=== PATIENT | female | born 1990 | race Two or more races ===

== ENCOUNTER 2018-01-05 17:59 | Emergency (ER) | payer SELFPAY ==
--- NOTE | 2018-01-05 18:13 | EDM.PDOC ---
ED HPI GENERAL MEDICAL PROBLEM - General Stated Complaint: TEST Time Seen by Provider: 01/05/18 18:03 - History of Present Illness INITIAL COMMENTS - FREE TEXT/NARRATIVE: HISTORY AND PHYSICAL: History of present illness: Patient 27-year-old female that for months. Was the 12th of this month who states she had a trace positive home test and request test she denies any other concern. Review of systems: As per history of present illness and below otherwise all systems reviewed and negative. Past medical history: As per history of present illness and as reviewed below otherwise noncontributory. Surgical history: As per history of present illness and as reviewed below otherwise noncontributory. Social history: No reported history of drug or alcohol abuse. Family history: As per history of present illness and as reviewed below otherwise noncontributory. Physical exam: HEENT: Atraumatic, normocephalic, pupils reactive, negative for conjunctival pallor or scleral icterus, mucous membranes moist, throat clear, neck supple, nontender, trachea midline. Lungs: Clear to auscultation, breath sounds equal bilaterally, chest nontender. Heart: S1S2, regular, negative for clicks, rubs, or JVD. Abdomen: Soft, nondistended, nontender. Negative for masses or hepatosplenomegaly. Negative for costovertebral tenderness. Pelvis: Stable nontender. Genitourinary: Deferred. Rectal: Deferred. Extremities: Atraumatic, negative for cords or calf pain. Neurovascular unremarkable. Neuro: Awake, alert, oriented. Cranial nerves II through XII unremarkable. Cerebellum unremarkable. Motor and sensory unremarkable throughout. Exam nonfocal. Diagnostics: ECG Therapeutics: None Impression: 1 medical screening exam/ test Definitive disposition and diagnosis as appropriate pending reevaluation and review of above. - Related Data Allergies Allergy/AdvReac Type Severity Reaction Status Date / Time No Known Allergies Allergy Verified 01/05/18 18:21 Home Meds: Home Meds Ethosuximide 250 mg PO DAILY 01/05/18 [History] Zonisamide [Zonegran] 100 mg PO BEDTIME 01/05/18 [History] lamoTRIgine [lamoTRIgine] 200 mg PO DAILY 01/05/18 [History] ED ROS GENERAL - Review of Systems Review Of Systems: ROS reveals no pertinent complaints other than HPI. ED EXAM, GENERAL - Physical Exam Exam: See Below (dictation) Course - Vital Signs Last Recorded V/S: Last Vital Signs Temp 36.4 C 01/05/18 18:11 Pulse 82 01/05/18 18:11 Resp 18 01/05/18 18:11 BP 129/82 01/05/18 18:11 Pulse Ox 96 01/05/18 18:11 - Orders/Labs/Meds Labs: Laboratory Tests 01/05/18 Range/Units 18:09 Urine HCG, Qual NEGATIVE (NEGATIVE) Departure - Departure Time of Disposition: 18:11 Disposition: Home, Self-Care 01 Condition: Good Clinical Impression: Encounter for medical screening examination - Discharge Information Referrals: PCP,None [Primary Care Provider] - Additional Instructions: The following information is given to patients seen in the emergency department who are being discharged to home. This information is to outline your options for follow-up care. We provide all patients seen in our emergency department with a follow-up referral. The need for follow-up, as well as the timing and circumstances, are variable depending upon the specifics of your emergency department visit. If you don't have a primary care physician on staff, we will provide you with a referral. We always advise you to contact your personal physician following an emergency department visit to inform them of the circumstance of the visit and for follow-up with them and/or the need for any referrals to a consulting specialist. The emergency department will also refer you to a specialist when appropriate. This referral assures that you have the opportunity for followup care with a specialist. All of these measure are taken in an effort to provide you with optimal care, which includes your followup. Under all circumstances we always encourage you to contact your private physician who remains a resource for coordinating your care. When calling for followup care, please make the office aware that this follow-up is from your recent emergency room visit. If for any reason you are refused follow-up, please contact the [facility] emergency department at and asked to speak to the emergency department charge nurse. Follow-up primary medical doctor return as needed as discussed
[2018-01-05 19:06] VITALS: BP 121/75
== END 2018-01-05 18:49 | disposition home or self-care (01) ==
LOC: MW.ED 17:59
DX: Z32.02 Encounter for pregnancy test, result negative (principal); Z79.899 Other long term (current) drug therapy
CPT/HCPCS: 81025; 99282

== ENCOUNTER 2018-04-01 21:56 | Emergency (ER) | payer SELFPAY ==
[2018-04-01] MEDS ORDERED: Ondansetron 4 MG/2 ML SDV IVPUSH ONE (22:00)
[2018-04-01] MEDS ORDERED: Ketorolac 30 MG/ML SDV IVPUSH ONE (22:00)
[2018-04-01] MEDS ORDERED: Sodium Chloride 0.9% 1,000 ML IV ONE (22:00)
--- NOTE | 2018-04-01 22:02 | EDM.PDOC ---
ED HPI GENERAL MEDICAL PROBLEM - General Stated Complaint: PAIN IN ABDOMEN Time Seen by Provider: 04/01/18 22:01 Source of Information: Reports: Patient - History of Present Illness INITIAL COMMENTS - FREE TEXT/NARRATIVE: HISTORY AND PHYSICAL: History of present illness: [Patient has had some left-sided abdominal pain increasing over last 24-48 hours worsen by carrying her child she points to the left lower quadrant no fever nausea vomiting chills sweats no distress rates pain 4 out of 10 nonradiating ] Review of systems: As per history of present illness and below otherwise all systems reviewed and negative. Past medical history: As per history of present illness and as reviewed below otherwise noncontributory. Surgical history: As per history of present illness and as reviewed below otherwise noncontributory. Social history: No reported history of drug or alcohol abuse. Family history: As per history of present illness and as reviewed below otherwise noncontributory. Physical exam: HEENT: Atraumatic, normocephalic, pupils reactive, negative for conjunctival pallor or scleral icterus, mucous membranes moist, throat clear, neck supple, nontender, trachea midline. Lungs: Clear to auscultation, breath sounds equal bilaterally, chest nontender. Heart: S1S2, regular, negative for clicks, rubs, or JVD. Abdomen: Soft, nondistended, mild tenderness on deep palpation in left lower quadrant no guarding or rebound tenderness. Negative for masses or hepatosplenomegaly. Negative for costovertebral tenderness. Pelvis: Stable nontender. Genitourinary: Deferred. Rectal: Deferred. Extremities: Atraumatic, negative for cords or calf pain. Neurovascular unremarkable. Neuro: Awake, alert, oriented. Cranial nerves II through XII unremarkable. Cerebellum unremarkable. Motor and sensory unremarkable throughout. Exam nonfocal. Diagnostics: [CBC CMP UA hCG lipase ] Therapeutics: [Liter normal saline bolus Zofran 8 mg IV Toradol 30 mg IV ] Toradol Keflex Impression: [ abdominal pain ] Epiploic appendage-itis Definitive disposition and diagnosis as appropriate pending reevaluation and review of above. Abdominal Pain Score (Numeric/FACES): 7 - Related Data Allergies Allergy/AdvReac Type Severity Reaction Status Date / Time kiwi Allergy Swelling Verified 04/01/18 23:03 Home Meds: Home Meds Ethosuximide 250 mg PO DAILY 01/05/18 [History] lamoTRIgine 200 mg PO DAILY 01/05/18 [History] Past Medical History Neurological History: Reports: Seizure - Past Surgical History GI Surgical History: Reports: Appendectomy Social & Family History - Family History Family Medical History: Noncontributory ED ROS GENERAL - Review of Systems Review Of Systems: See Below ED EXAM, GENERAL - Physical Exam Exam: See Below Course - Vital Signs Last Recorded V/S: Last Vital Signs Temp 98.7 F 04/01/18 22:10 Pulse 80 04/01/18 23:37 Resp 16 04/01/18 23:37 BP 120/55 L 04/01/18 23:37 Pulse Ox 100 04/01/18 23:37 - Orders/Labs/Meds Orders: Active Orders 24 hr Category Date Time Status Abdomen Pelvis wo Cont [CT] Stat Exams 04/01/18 22:46 Taken CULTURE URINE [RM] Stat Lab 04/01/18 22:50 Received HCG QUALITATIVE,URINE [URCHEM] Stat Lab 04/01/18 22:50 Ordered UA W/MICROSCOPIC [URIN] Stat Lab 04/01/18 22:50 Ordered Labs: Laboratory Tests 04/01/18 04/01/18 04/01/18 Range/Units 22:20 22:20 22:50 WBC 11.92 H (4.0-11.0) K/uL RBC 4.94 (4.30-5.90) M/uL Hgb 10.0 L (12.0-16.0) g/dL Hct 33.5 L (36.0-46.0) % MCV 67.8 L (80.0-98.0) fL MCH 20.2 L (27.0-32.0) pg MCHC 29.9 L (31.0-37.0) g/dL RDW Std Deviation 44.1 (28.0-62.0) fl RDW Coeff of Cristopher 18 H (11.0-15.0) % Plt Count 344 (150-400) K/uL MPV 9.30 (7.40-12.00) fL Neut % (Auto) 62.3 (48.0-80.0) % Lymph % (Auto) 31.0 (16.0-40.0) % [place] % (Auto) 5.3 (0.0-15.0) % Eos % (Auto) 1.0 (0.0-7.0) % Baso % (Auto) 0.4 (0.0-1.5) % Neut # (Auto) 7.4 H (1.4-5.7) K/uL Lymph # (Auto) 3.7 H (0.6-2.4) K/uL [place] # (Auto) 0.6 (0.0-0.8) K/uL Eos # (Auto) 0.1 (0.0-0.7) K/uL Baso # (Auto) 0.1 (0.0-0.1) K/uL Nucleated RBC % 0.0 /100WBC Nucleated RBCs # 0 K/uL Sodium 136 (136-145) mmol/L Potassium 3.8 (3.5-5.1) mmol/L Chloride 102 (98-107) mmol/L Carbon Dioxide 23.3 (21.0-32.0) mmol/L BUN 16 (7.0-18.0) mg/dL Creatinine 0.7 (0.6-1.0) mg/dL Est Cr Clr Drug Dosing 85.94 mL/min Estimated GFR (MDRD) > 60.0 ml/min Glucose 136 H (74-106) mg/dL Calcium 9.0 (8.5-10.1) mg/dL Total Bilirubin 0.2 (0.2-1.0) mg/dL AST 12 L (15-37) IU/L ALT 18 (14-63) IU/L Alkaline Phosphatase 134 H (46-116) U/L Total Protein 7.5 (6.4-8.2) g/dL Albumin 3.1 L (3.4-5.0) g/dL Globulin 4.4 H (2.0-3.5) g/dL Albumin/Globulin Ratio 0.7 L (1.3-2.8) Lipase 115 (73-393) U/L Urine Color YELLOW Urine Appearance HAZY Urine pH 6.0 (5.0-8.0) Ur Specific [place] >= 1.030 (1.001-1.035) Urine Protein NEGATIVE (NEGATIVE) mg/dL Urine Glucose (UA) NEGATIVE (NEGATIVE) mg/dL Urine Ketones NEGATIVE (NEGATIVE) mg/dL Urine Occult Blood MODERATE (NEGATIVE) Urine Nitrite NEGATIVE (NEGATIVE) Urine Bilirubin NEGATIVE (NEGATIVE) Urine Urobilinogen 0.2 (<2.0) EU/dL Ur Leukocyte Esterase TRACE (NEGATIVE) Urine RBC 2-4 (0-2/HPF) Urine WBC 4-6 (0-5/HPF) Ur Epithelial Cells FEW (NONE-FEW) Urine Bacteria FEW (NEGATIVE) Urine HCG, Qual (NEGATIVE) 04/01/18 Range/Units 22:50 WBC (4.0-11.0) K/uL RBC (4.30-5.90) M/uL Hgb (12.0-16.0) g/dL Hct (36.0-46.0) % MCV (80.0-98.0) fL MCH (27.0-32.0) pg MCHC (31.0-37.0) g/dL RDW Std Deviation (28.0-62.0) fl RDW Coeff of Cristopher (11.0-15.0) % Plt Count (150-400) K/uL MPV (7.40-12.00) fL Neut % (Auto) (48.0-80.0) % Lymph % (Auto) (16.0-40.0) % [place] % (Auto) (0.0-15.0) % Eos % (Auto) (0.0-7.0) % Baso % (Auto) (0.0-1.5) % Neut # (Auto) (1.4-5.7) K/uL Lymph # (Auto) (0.6-2.4) K/uL [place] # (Auto) (0.0-0.8) K/uL Eos # (Auto) (0.0-0.7) K/uL Baso # (Auto) (0.0-0.1) K/uL Nucleated RBC % /100WBC Nucleated RBCs # K/uL Sodium (136-145) mmol/L Potassium (3.5-5.1) mmol/L Chloride (98-107) mmol/L Carbon Dioxide (21.0-32.0) mmol/L BUN (7.0-18.0) mg/dL Creatinine (0.6-1.0) mg/dL Est Cr Clr Drug Dosing mL/min Estimated GFR (MDRD) ml/min Glucose (74-106) mg/dL Calcium (8.5-10.1) mg/dL Total Bilirubin (0.2-1.0) mg/dL AST (15-37) IU/L ALT (14-63) IU/L Alkaline Phosphatase (46-116) U/L Total Protein (6.4-8.2) g/dL Albumin (3.4-5.0) g/dL Globulin (2.0-3.5) g/dL Albumin/Globulin Ratio (1.3-2.8) Lipase (73-393) U/L Urine Color Urine Appearance Urine pH (5.0-8.0) Ur Specific [place] (1.001-1.035) Urine Protein (NEGATIVE) mg/dL Urine Glucose (UA) (NEGATIVE) mg/dL Urine Ketones (NEGATIVE) mg/dL Urine Occult Blood (NEGATIVE) Urine Nitrite (NEGATIVE) Urine Bilirubin (NEGATIVE) Urine Urobilinogen (<2.0) EU/dL Ur Leukocyte Esterase (NEGATIVE) Urine RBC (0-2/HPF) Urine WBC (0-5/HPF) Ur Epithelial Cells (NONE-FEW) Urine Bacteria (NEGATIVE) Urine HCG, Qual NEGATIVE (NEGATIVE) Meds: Medications Discontinued Medications Generic Name Dose Route Start Last Admin Trade Name Freq PRN Reason Stop Dose Admin Sodium Chloride 1,000 mls @ 999 mls/hr 04/01/18 22:00 04/01/18 22:39 Normal Saline IV 04/01/18 23:00 999 mls/hr STAT ONE Administration Ketorolac Tromethamine 30 mg 04/01/18 22:00 04/01/18 22:39 Toradol IVPUSH 04/01/18 22:01 30 mg ONETIME ONE Administration Ondansetron HCl 8 mg 04/01/18 22:00 04/01/18 22:41 Zofran IVPUSH 04/01/18 22:01 8 mg ONETIME ONE Administration Departure - Departure Time of Disposition: 00:26 Disposition: Home, Self-Care 01 Condition: Good Clinical Impression: Abdominal pain - Discharge Information Referrals: PCP,None [Primary Care Provider] - Additional Instructions: The following information is given to patients seen in the emergency department who are being discharged to home. This information is to outline your options for follow-up care. We provide all patients seen in our emergency department with a follow-up referral. The need for follow-up, as well as the timing and circumstances, are variable depending upon the specifics of your emergency department visit. If you don't have a primary care physician on staff, we will provide you with a referral. We always advise you to contact your personal physician following an emergency department visit to inform them of the circumstance of the visit and for follow-up with them and/or the need for any referrals to a consulting specialist. The emergency department will also refer you to a specialist when appropriate. This referral assures that you have the opportunity for follow-up care with a specialist. All of these measure are taken in an effort to provide you with optimal care, which includes your follow-up. Under all circumstances we always encourage you to contact your private physician who remains a resource for coordinating your care. When calling for follow-up care, please make the office aware that this follow-up is from your recent emergency room visit. If for any reason you are refused follow-up, please contact the [facility] emergency department at and asked to speak to the emergency department charge nurse. - My Orders Last 24 Hours: My Active Orders 04/01/18 22:46 Abdomen Pelvis wo Cont [CT] Stat 04/01/18 22:50 CULTURE URINE [RM] Stat HCG QUALITATIVE,URINE [URCHEM] Stat UA W/MICROSCOPIC [URIN] Stat - Assessment/Plan Last 24 Hours: My Active Orders 04/01/18 22:46 Abdomen Pelvis wo Cont [CT] Stat 04/01/18 22:50 CULTURE URINE [RM] Stat HCG QUALITATIVE,URINE [URCHEM] Stat UA W/MICROSCOPIC [URIN] Stat
[2018-04-01 22:54] LABS: CHLORIDE,CL 102 mmol/L (98-107); SODIUM,NA 136 mmol/L (136-145)
[2018-04-02 00:43] VITALS: BP 157/82
--- NOTE | 2018-04-04 13:22 | CT ---
EXAM DATE: 04/01/18 PATIENT'S AGE: 27 Patient: ZURI CHANEL Facility: [place], [place] Site . Site : 1990 Study: CT Abdomen/Pelvis wo nadine [id number]/[id number] 11:26:41 PM Ordering Physician: Elena Gonzales Final Report: HISTORY: Lower abdominal pain starting yesterday. TECHNIQUE: The abdomen and pelvis were scanned using helical technique at 3 mm intervals without IV contrast. Sagittal and coronal reconstructions were performed. FINDINGS: Lung bases: No infiltrate. Liver and gallbladder: The liver parenchyma is homogeneous. No calcified gallstones. Spleen, pancreas and adrenal glands: Unremarkable. Kidneys and bladder: No calcified urolithiasis or hydronephrosis. Ureters are tiny in caliber. No ureteral stones of the bladder is decompressed. Retroperitoneum and lymph node: The aorta is normal caliber. No pathologic roney aortic lymphadenopathy is seen. There is a single borderline enlarged gastrohepatic lymph node measuring 14 x 10 mm on axial image 30. Small mesenteric lymph nodes are present. GI tract: Stomach is mildly distended. No dilated small bowel loops are seen. There surgical clips seen along the tip of the cecum most likely prior appendectomy. Stool and gas are seen throughout the colon. Within the left lower quadrant, there is a ring-like density measuring 3.6 x 1.8 x 2.9 cm in the peritoneal fat superior to the proximal sigmoid colon and lateral to small bowel. There is hazy increased density in the peritoneal fat. There is no adjacent small bowel or colonic wall thickening. This may represent epiploic appendagitis versus focal panniculitis /fat necrosis. There is no free air in the abdomen. There is no free fluid the pelvis. Pelvic organs: The uterus and adnexa are within normal limits. Abdominal wall: No ventral hernia. Osseous structures: Normal for age. IMPRESSION: 1. No calcified urolithiasis, hydronephrosis or ureteral obstruction. 2. 3.6 x 1.8 x 2.9 cm ring-like density is seen in the left lower quadrant peritoneal fat was standing hazy increased density. This is superior to the proximal sigmoid colon and lateral to the small bowel loops. This most likely represents focal panniculitis/fat necrosis versus epiploic appendagitis. No adjacent small bowel or colonic wall thickening. Dictated by Debra Dean MD @ 04/02/2018 12:11:25 AM Please note that all CT scans at this facility use dose modulation, iterative reconstruction, and/or weight-based dosing when appropriate to reduce radiation dose to as low as reasonably achievable. Dictated by: Debra Dean MD @ 04/02/2018 00:11:51 (Electronic Signature) Report Signed by Proxy. MTDD
== END 2018-04-02 00:38 | disposition home or self-care (01) ==
LOC: MW.ED 21:56
DX: K63.89 Other specified diseases of intestine (principal); Z91.018 Allergy to other foods; Z79.899 Other long term (current) drug therapy
CPT/HCPCS: 74176; 80053; 81001; 81025; 83690; 85025; 87086; 96361; 96374; 96375; 99284; J1885; J2405; J7040

== ENCOUNTER 2018-05-29 13:17 | Observation (INO) | payer OTHER ==
--- NOTE | 2018-05-29 13:50 | EDM.PDOC ---
ED HPI GENERAL MEDICAL PROBLEM - General Chief Complaint: Lower Extremity Injury/Pain Stated Complaint: INJURED RT ANKLE Time Seen by Provider: 05/29/18 13:25 Source of Information: Reports: Patient History Limitations: Reports: No Limitations - History of Present Illness INITIAL COMMENTS - FREE TEXT/NARRATIVE: HISTORY AND PHYSICAL: History of present illness: Patient is a 27-year-old female who presents to the emergency room today with complaints of right ankle pain. She states she was walking down a steep hill when she fell and rolled her ankle. She states she heard a "pop". Denies any numbness or tingling to the distal extremity. Increased pain with weightbearing and range of motion. Denies any previous injury, trauma or surgeries to the affected extremity. She did not hit her head or any loss of consciousness. Review of systems: As per history of present illness and below otherwise all systems reviewed and negative. Past medical history: As per history of present illness and as reviewed below otherwise noncontributory. Surgical history: As per history of present illness and as reviewed below otherwise noncontributory. Social history: No reported history of drug or alcohol abuse. Family history: As per history of present illness and as reviewed below otherwise noncontributory. Physical exam: General: Well-developed and well-nourished 27-year-old female. Alert and oriented. Nontoxic appearing and in no acute distress. HEENT: Atraumatic, normocephalic, pupils equal and reactive bilaterally, negative for conjunctival pallor or scleral icterus, mucous membranes moist, throat clear, neck supple, nontender, trachea midline. No drooling or trismus noted. No meningeal signs Lungs: Clear to auscultation, breath sounds equal bilaterally, chest nontender. Heart: S1S2, regular rate and rhythm without overt murmur Abdomen: Soft, nondistended, nontender. Negative for masses or hepatosplenomegaly. Negative for costovertebral tenderness. Pelvis: Stable nontender. Genitourinary: Deferred. Rectal: Deferred. Skin: Intact, warm, dry. No lesions or rashes noted. Extremities: Pain with palpation of the distal tib/fib, anterior surface of the right ankle, and medial malleoulus. Strong pedal pulse. Capillary refill less than 3 seconds. Patient has pain with flexion and extension of the ankle. She is negative for cords or calf pain. Neurovascular unremarkable. Neuro: Awake, alert, oriented. Cranial nerves II through XII unremarkable. Cerebellum unremarkable. Motor and sensory unremarkable throughout. Exam nonfocal. Notes: Xray shows a trimalleolar fracture. Dr Washington, Orthopedics, was consulted on this case. He will come in to see the patient. Information was shared with the patient. She was instructed on NPO status. We' ll give her IV pain medication at this time. Diagnostics: X-ray Therapeutics: Ice, morphine, zofran, posterior splint Impression: Trimalleolar fracture, right Plan: Patient is going to be admitted under Dr Washington's supervision Definitive disposition and diagnosis as appropriate pending reevaluation and review of above. Onset: Today Right Lower Leg Pain Score (Numeric/FACES): 10 - Related Data Allergies Allergy/AdvReac Type Severity Reaction Status Date / Time kiwi Allergy Swelling Verified 05/29/18 13:33 Home Meds: Home Meds Ethosuximide 250 mg PO DAILY 01/05/18 [History] lamoTRIgine 200 mg PO DAILY 01/05/18 [History] Past Medical History Neurological History: Reports: Seizure - Infectious Disease History Infectious Disease History: Reports: Chicken Pox - Past Surgical History GI Surgical History: Reports: Appendectomy Social & Family History - Family History Family Medical History: Noncontributory - Tobacco Use Smoking Status *Q: Never Smoker - Caffeine Use Caffeine Use: Reports: Soda - Recreational Drug Use Recreational Drug Use: No Review of Systems - Review of Systems Review Of Systems: ROS reveals no pertinent complaints other than HPI. ED EXAM, GENERAL - Physical Exam Exam: See Below (See dictation) Course - Vital Signs Last Recorded V/S: Last Vital Signs Temp 98.0 F 05/29/18 13:35 Pulse 88 05/29/18 13:35 Resp 18 05/29/18 13:35 BP 137/83 05/29/18 13:35 Pulse Ox 95 05/29/18 13:35 - Orders/Labs/Meds Orders: Active Orders 24 hr Category Date Time Status Ankle Min 3V Rt [CR] Stat Exams 05/29/18 13:23 Taken DME for Discharge [COMM] Stat Oth 05/29/18 13:53 Ordered Meds: Medications Discontinued Medications Generic Name Dose Route Start Last Admin Trade Name Freq PRN Reason Stop Dose Admin Morphine Sulfate 2 mg 05/29/18 14:30 05/29/18 14:49 Morphine IVPUSH 05/29/18 14:31 2 mg ONETIME ONE Administration Ondansetron HCl 4 mg 05/29/18 14:30 05/29/18 14:49 Zofran IVPUSH 05/29/18 14:31 4 mg ONETIME ONE Administration Departure - Departure Time of Disposition: 15:12 Disposition: Refer to Observation Clinical Impression: Trimalleolar fracture of ankle, closed Qualifiers: Encounter type: initial encounter Laterality: right Qualified Code(s): S82.851A - Displaced trimalleolar fracture of right lower leg, initial encounter for closed fracture - Discharge Information Referrals: PCP,None [Primary Care Provider] - Forms: ED Department Discharge - My Orders Last 24 Hours: My Active Orders 05/29/18 13:23 Ankle Min 3V Rt [CR] Stat 05/29/18 13:53 DME for Discharge [COMM] Stat - Assessment/Plan Last 24 Hours: My Active Orders 05/29/18 13:23 Ankle Min 3V Rt [CR] Stat 05/29/18 13:53 DME for Discharge [COMM] Stat
[2018-05-29] MEDS ORDERED: Ondansetron 4 MG/2 ML SDV IVPUSH ONE (14:30)
[2018-05-29] MEDS ORDERED: Morphine 2 MG/ML Syringe IVPUSH ONE (14:30)
[2018-05-29] MEDS ORDERED: ceFAZolin 2 GM in Premix Bag 1 BAG IV ONE (15:57)
--- NOTE | 2018-05-29 16:22 | HP ---
DATE OF : 1990 PRIMARY CARE PHYSICIAN: None PCP HISTORY OF PRESENT ILLNESS: The patient is a 27-year-old female, who sustained a mechanical/twisting injury to her right ankle earlier today at approximately noon. She was walking down a hill. She notes an injury to the ankle. She denies pain involving other regions. She did not hit her head or lose consciousness. Her last meal was at 8:00 a.m. PAST MEDICAL HISTORY: Epilepsy, anemia, obesity. PAST SURGICAL HISTORY: Appendectomy. MEDICATIONS: Include Lamictal and another antiepileptic medication. SOCIAL HISTORY: She does not smoke, does not drink alcohol. She denies additional drug use. She is accompanied to the Emergency Department by her with whom she also lives at home. REVIEW OF SYSTEMS: She denies personal or family history of DVT/PE or bleeding/clotting problems associated with surgery. She has had no complications of her previous surgeries or other skin infections. She has been taking a normal diet and has otherwise been in her normal state of health. PHYSICAL EXAMINATION: GENERAL: Reveals a well-appearing female. She is mildly uncomfortable with respect to the ankle, but is otherwise in no apparent distress. She responds appropriately to questions and is alert and oriented x3. EXTREMITIES: Examination of her bilateral upper extremities shows no pain with active range of motion of the shoulders, elbows, and wrists. No pain with passive range of motion of any joints of the left lower extremity or no evidence of any trauma involving the right knee or right hip region. There is swelling involving the right ankle. She notes some nonspecific numbness involving her toes. She is, however, able to identify sensation to light touch in the deep peroneal, superficial peroneal, and tibial nerve distribution. She has a palpable dorsalis pedis pulse and brisk capillary refill to the toes. She is able to weakly flex and extend the toes, which is somewhat limited by pain referred to the ankle region. There are no lacerations, blisters, or other abnormalities involving the ankle. She does have a somewhat significant swelling which is difficult to ascertain entirely given the fact that she has significant obesity at baseline. LABORATORY RESULTS: Previously obtained labs were reviewed. New labs pending. Prior labs notable for some anemia with a hemoglobin of 10 and hematocrit of 33, white count is 12, platelet count 344. A basic metabolic panel was reviewed as well as was a urine hCG which was negative. X-rays were reviewed as well. This is consistent with a bimalleolar and possible trimalleolar ankle fracture. The lateral is difficult to interpret. There is a high fibular fracture with associated medial malleolar fracture. There is lateral subluxation of the tibia. There does not appear to be a posterior or anterior subluxation on the lateral view. ASSESSMENT: Unstable right ankle fracture. PLAN: I did recommend operative intervention for this given the nature of the fracture as well as the patient's young age and high activity level. She is in agreement with operative intervention and consent for the procedure was obtained. Please see below. She was placed in a splint in neutral dorsiflexion with some varus stress as well to reduce the lateral subluxation. My intention will be likely to admit the patient for a strict elevation to avoid swelling and likely completion of the surgery tomorrow. She could potentially be discharged home following the procedure. Informed consent: Following a thorough discussion of the risks, benefits, expected outcomes, and alternatives, patient does wish to proceed with operative intervention as noted above. The potential complications were discussed to include, but not limited to infection, neurovascular injury, DVT/PE, damage to adjacent structures, specifically we discussed the likely outcome of a temporary or permanent numbness/paresthesias involving the dorsal aspect of the foot given the proximity of the superficial peroneal nerve to the high fibular fracture, failure of the fracture to heal, hardware related failure/pain, need for later hardware removal, persistent pain in spite of surgery, development of arthritis over time, need for additional surgery, and rarely loss of limb or life. ALEKSANDR / JOVANI /[id number] AWA
[2018-05-29 16:48] LABS: CHLORIDE,CL 103 mmol/L (98-107); SODIUM,NA 136 mmol/L (136-145)
[2018-05-29] MEDS: Morphine 2 MG/ML Syringe IVPUSH PRN ×3 (17:08→21:26)
[2018-05-29] MEDS: ETHOSUXIMIDE 250 MG PO SCH (21:09)
[2018-05-29] MEDS: lamoTRIgine 100 MG Tab PO SCH (21:11)
[2018-05-30] MEDS ORDERED: Lactated Ringers 1,000 ML IV SCH
[2018-05-30] MEDS: Morphine 2 MG/ML Syringe IVPUSH PRN ×3 (01:08→09:04)
[2018-05-30] MEDS: lamoTRIgine 100 MG Tab PO SCH ×2 (08:59→22:07)
[2018-05-30] MEDS ORDERED: ETHOSUXIMIDE 250 MG PO SCH (09:00)
[2018-05-30] MEDS ORDERED: lamoTRIgine 100 MG Tab PO SCH (09:00)
[2018-05-30] MEDS: ETHOSUXIMIDE 250 MG PO SCH ×2 (09:04→22:08)
--- NOTE | 2018-05-30 09:23 | PCM.PREANE ---
Preanesthetic Assessment - Procedure Proposed Procedure: ORIF Right ankle - Anesthesia/Transfusion/Family Hx Anesthesia History: Prior Anesthesia Without Reaction Family History of Anesthesia Reaction: No Transfusion History: No Prior Transfusion(s) - Review of Systems Other: Reports: None - Physical Assessment NPO Status Date: 05/29/18 NPO Status Time: 22:00 O2 Sat by Pulse Oximetry: 98 Respiratory Rate: 19 Vital Signs: Last Vital Signs Temp 37.2 C 05/30/18 05:48 Pulse 80 05/30/18 05:48 Resp 19 05/30/18 05:48 BP 129/79 05/30/18 05:48 Pulse Ox 98 05/30/18 05:48 Height: 5 ft Weight: 86.1 kg ASA Class: 2 Mental Status: Alert & Oriented x3 Airway Class: Mallampati = 2 Dentition: Reports: Normal Dentition Thyro-Mental Finger Breadths: 3 Mouth Opening Finger Breadths: 2 ROM/Head Extension: Full - Lab Values: Laboratory Last Values WBC 15.35 K/uL (4.0-11.0) H 05/29/18 14:45 RBC 4.85 M/uL (4.30-5.90) 05/29/18 14:45 Hgb 10.1 g/dL (12.0-16.0) L 05/29/18 14:45 Hct 33.4 % (36.0-46.0) L 05/29/18 14:45 MCV 68.9 fL (80.0-98.0) L 05/29/18 14:45 MCH 20.8 pg (27.0-32.0) L 05/29/18 14:45 MCHC 30.2 g/dL (31.0-37.0) L 05/29/18 14:45 RDW Std Deviation 48.2 fl (28.0-62.0) 05/29/18 14:45 RDW Coeff of Cristopher 19 % (11.0-15.0) H 05/29/18 14:45 Plt Count 354 K/uL (150-400) 05/29/18 14:45 MPV 9.20 fL (7.40-12.00) 05/29/18 14:45 Nucleated RBC % 0.0 /100WBC 05/29/18 14:45 Nucleated RBCs # 0 K/uL 05/29/18 14:45 Sodium 136 mmol/L (136-145) 05/29/18 14:45 Potassium 4.0 mmol/L (3.5-5.1) 05/29/18 14:45 Chloride 103 mmol/L (98-107) 05/29/18 14:45 Carbon Dioxide 24.3 mmol/L (21.0-32.0) 05/29/18 14:45 BUN 11 mg/dL (7.0-18.0) 05/29/18 14:45 Creatinine 0.9 mg/dL (0.6-1.0) 05/29/18 14:45 Est Cr Clr Drug Dosing 66.84 mL/min 05/29/18 14:45 Estimated GFR (MDRD) > 60.0 ml/min 05/29/18 14:45 Glucose 137 mg/dL (74-106) H 05/29/18 14:45 Calcium 9.6 mg/dL (8.5-10.1) 05/29/18 14:45 Urine HCG, Qual NEGATIVE (NEGATIVE) 05/29/18 18:20 - Allergies Allergies/Adverse Reactions: Allergies Allergy/AdvReac Type Severity Reaction Status Date / Time kiwi Allergy Swelling Verified 05/29/18 13:33 - Blood Blood Available: No - Acknowledgements Anesthesia Type Planned: General Anesthesia Pt an Appropriate Candidate for the Planned Anesthesia: Yes Alternatives and Risks of Anesthesia Discussed w Pt/Guardian: Yes Pt/Guardian Understands and Agrees with Anesthesia Plan: Yes PreAnesthesia Questionnaire Neurological History: Reports: Seizure Other Neuro History: took her meds today - Infectious Disease History Infectious Disease History: Reports: Chicken Pox - Past Surgical History GI Surgical History: Reports: Appendectomy - SUBSTANCE USE Smoking Status *Q: Never Smoker Second Hand Smoke Exposure: No Recreational Drug Use History: No - HOME MEDS Home Medications: Home Meds Ethosuximide 500 mg PO BID 01/05/18 [History] lamoTRIgine 200 mg PO BID 01/05/18 [History] - CURRENT (IN HOUSE) MEDS Current Meds: Current Medications Lactated Ringer's (Ringers, Lactated) 1,000 mls @ 70 mls/hr IV ASDIRECTED [facility] Last Admin: 05/29/18 23:58 Dose: 70 mls/hr Lamotrigine (Lamotrigine) 200 mg PO BID [facility] Last Admin: 05/30/18 08:59 Dose: 200 mg Morphine Sulfate (Morphine) 2 mg IVPUSH Q1H PRN PRN Reason: Pain Last Admin: 05/30/18 09:04 Dose: 2 mg Ethosuximide 250mg Capsule Own Med * * 2 each PO BID [facility] Last Admin: 05/30/18 09:04 Dose: 2 each Discontinued Medications Cefazolin Sodium/Dextrose 2 gm (/ Premix) 50 mls @ 100 mls/hr IV ONCALL ONE Stop: 05/29/18 16:26 Morphine Sulfate (Morphine) 2 mg IVPUSH ONETIME ONE Stop: 05/29/18 14:31 Last Admin: 05/29/18 14:49 Dose: 2 mg Ondansetron HCl (Zofran) 4 mg IVPUSH ONETIME ONE Stop: 05/29/18 14:31 Last Admin: 05/29/18 14:49 Dose: 4 mg
--- NOTE | 2018-05-30 09:38 | CR ---
EXAM DATE: 05/29/18 PATIENT'S AGE: 27 Patient: ZURI CHANEL Facility: [place], [place] Site . Site : 1990 Study: XRay Extremity Right ankle [id number]/12/2018 2:03:49 PM Ordering Physician: Doctor Simmons Final Report: INDICATION: slipped down hill 3 hours ago/cant put weight on right ankle TECHNIQUE: Three views of the right ankle are submitted. COMPARISON: None. FINDINGS: 1. Fracture of the distal right fibular shaft 6 cm superior to the tibiotalar joint with half shaft width of lateral displacement of the distal shaft fragment. Transverse fracture through the medial malleolus at the level of the talar dome with the distal fragment and the talus subluxed laterally by approximately 3 mm. The medial malleolar fragment is also displaced by up to 7 mm inferiorly. 2. Subtle deformity of the distal tibia posterolaterally where a nondisplaced intra-articular fracture is suspected. 3. Soft tissue swelling about the right ankle. IMPRESSION: Trimalleolar fracture of the right ankle as described above. Dictated by Rusty Adams MD @ 05/29/2018 2:26:19 PM Dictated by: Rusty Adams MD @ 05/29/2018 14:26:24 (Electronic Signature) Report Signed by Proxy. AWA
[2018-05-30] MEDS ORDERED: fentaNYL 100 MCG/2 ML SDV IVPUSH PRN (13:46)
--- NOTE | 2018-05-30 13:46 | CT ---
EXAM DATE: 05/29/18 PATIENT'S AGE: 27 Patient: ZURI CHANEL Facility: [place], [place] : 1990 Study: CT Extremity Right [id number]/12/2018 7:17:45 PM Ordering Physician: Padmini Drake Final Report: ADDENDUM CORRECTION: Technique should read: CT right tibia and fibula without contrast. Christian Montalvo M.D. Diagnostic/Musculoskeletal Radiologist [employer]. [email or web address]: D& HISTORY: Fall while hiking. Fracture. TECHNIQUE: CT left tibia and fibula without contrast. COMPARISON: Radiographs same day. FINDINGS: Acute oblique fracture of the distal fibular shaft. 5 mm posterior displacement of the distal fragment. Acute slightly oblique transverse fracture of the medial malleolus. Medial malleolus fragment is slightly rotated inferiorly resulting in 5 mm displacement along the anterior fracture margin. Fracture involves the medial malleolus articular surface. Acute coronal intra-articular fracture of the posterior malleolus. Fracture involves the posterior tibial plafond articular surface. Posterior malleolus fragment is minimally superiorly displaced resulting in less than 2 mm articular surface step-off. Few small cortical fragments along the lateral margin of the posterior malleolus fracture. No proximal fibula or tibia fracture. No dislocation. Joint spaces of the hindfoot, midfoot, and midfoot-forefoot junction are maintained. Knee joint spaces are maintained. Physiologic quantity of fluid in the right knee joint. No lytic or blastic bone lesions. Ill-defined high-density stranding of subcutaneous fat in the lower leg and ankle consistent with acute hemorrhage. Muscle bulk is maintained. IMPRESSION: 1. Acute intra-articular fractures of the medial and posterior malleoli. 2. Acute fracture of the distal fibular shaft. 3. Ill-defined subcutaneous hemorrhage. Please note that all CT scans at this facility use dose modulation, iterative reconstruction, and/or weight-based dosing when appropriate to reduce radiation dose to as low as reasonably achievable. Dictated by Christian Montalvo MD @ May 30 2018 8:51AM Signed by: Christian Montalvo @ 05/30/2018 9:00:51 AM (Electronic Signature) ----ADDENDUM---- (Electronic Signature) Report Signed by Proxy. [facility]
--- NOTE | 2018-05-30 14:35 | PCM.SN ---
- Free Text/Narrative Note: Preop dx: Right ankle fracture Postop dx: Same Surgery: ORIF right ankle fracture Comp: none EBL: 20 TT: 70 minutes at 300 mmHg
--- NOTE | 2018-05-30 14:46 | PCM.POSTAN ---
POST ANESTHESIA ASSESSMENT - MENTAL STATUS Mental Status: Alert, Oriented - RESPIRATORY Respiratory Status: Respiratory Rate WNL, Airway Patent, O2 Saturation Stable, Supplemental Oxygen (O2 via nasal canula) - CARDIOVASCULAR CV Status: Pulse Rate WNL, Blood Pressure Stable - GASTROINTESTINAL GI Status: No Symptoms - PAIN Pain Score: 9 Free Text/Narrative:: patient states pain a 9 but having hard time keeping eyes open and head bobbling. IV tylenol ordered - POST OP HYDRATION Hydration Status: Adequate & Stable
[2018-05-30] MEDS ORDERED: Acetaminophen 1,000 MG in Premix Bag 1 BAG IV ONE (14:47)
--- NOTE | 2018-05-30 15:19 | CR ---
EXAMINATION: Right ankle HISTORY: ORIF COMPARISON: CT dated 05/29/2018 TECHNIQUE: 8 fluoroscopic images provided FINDINGS/IMPRESSION: Operative control films demonstrate screw and plate fixation of the distal fibul a with a syndesmotic anchor noted. 2 screws fixate the medial malleolus.
--- NOTE | 2018-05-30 19:35 | PCM48HPAN ---
Post Anesthesia Note - EVALUATION WITHIN 48HRS OF ANESTHETIC Vital Signs in Normal Range: Yes Patient Participated in Evaluation: Yes Respiratory Function Stable: Yes Airway Patent: Yes Cardiovascular Function Stable: Yes Hydration Status Stable: Yes Pain Control Satisfactory: Yes Nausea and Vomiting Control Satisfactory: Yes Mental Status Recovered: Yes Resp Rate: 11
[2018-05-30] MEDS: Ondansetron 4 MG/2 ML SDV IVPUSH PRN (20:15)
--- NOTE | 2018-05-30 21:17 | OR ---
SURGEON: ERIKA DOWNS MD DATE OF PROCEDURE: 05/30/2018 ANESTHESIA: General anesthesia with local infiltration of Marcaine at the completion of the case. PREOPERATIVE DIAGNOSIS: Unstable right ankle fracture, trimalleolar. POSTOPERATIVE DIAGNOSIS: Unstable right ankle fracture, trimalleolar. OPERATION PERFORMED: Open reduction and internal fixation, right ankle fracture. COMPLICATIONS: None. ESTIMATED BLOOD LOSS: 20. TOURNIQUET TIME: 70 minutes at 300 mmHg. INDICATIONS: The patient is a 27-year-old female, who sustained a fall yesterday resulting in a trimalleolar fracture of her ankle. I saw her in the Emergency Department yesterday, a reduction and splint was applied. She was admitted for monitoring and elevation with planned surgery today. Consent for this procedure was obtained following a thorough discussion of the risks, benefits, expected outcomes, and alternatives. DESCRIPTION OF PROCEDURE: I saw the patient in the preoperative holding area. The operative site was marked. She was brought back to the operating room. General anesthesia was administered. She received 2 g of Ancef preoperatively. She also received 1 additional gram following deflation of the tourniquet during the case. She was positioned supine with a bump. Care was taken to pad all bony prominences. She was then prepped and draped in the normal sterile fashion. Following a multidisciplinary time-out, the Esmarch bandage applied and the tourniquet was inflated to 300 mmHg. I initially made a lateral approach to the distal fibula fracture. This was a more proximal fracture, so I did take care to identify and protect the superficial peroneal nerve. The fracture site was identified. Hematoma was removed. It did take a fair amount of traction to bring this out to length, but ultimately I was able to bring out to length. I did attempt a lag screw. However, I was not successful in this given a relatively short oblique nature of the fracture. Ultimately, I was able to provisionally hold the reduction with a K-wire and place a tubular locking plate from Francis laterally. This was secured proximally with one nonlocking and two locking screws and distally with one locking and two nonlocking screws. Attention was turned towards the medial side. The saphenous vein/nerve were identified and protected throughout the case. The fracture site was identified. Interposed periosteum was elevated and cleaned in order to visualize anatomic reduction. This was held with a clamp. A two 4-0 cannulated screws were used to secure the fixation. Multiple fluoroscopic views were obtained at this time to ensure appropriate position of the hardware in both the AP and lateral view. Although, I had fixation laterally and medially, I still felt that there seemed to be some subjective widening of the syndesmosis, although, no gross dynamic instability. I did feel that, as a backup, a single syndesmotic soft/suture fixation was appropriate. An Arthrex tightrope device was placed and secured in place in a standard fashion and this was done with the ankle in dorsiflexion and the syndesmosis clamped appropriately. Final fluoroscopic views were obtained at this time and showed appropriate reductions, appropriate position of the hardware, no other additional complications. Wounds were thoroughly irrigated. The tourniquet was deflated. Hemostasis was obtained. Closure occurred on the lateral side with some 0 Vicryl for the deep subcutaneous tissue as well as general apposition of the deep layer over the plate. The skin was closed with 2- 0 Vicryl, 3-0 Vicryl, and desiree. The medial side was closed with 2-0, Vicryl 3-0 Vicryl and desiree after an additional thorough irrigation. The patient was then placed in an posterior U-splint with neutral dorsiflexion. She was then awoken from general anesthesia and transferred to recovery in stable condition. Postoperative plan will include routine cares following fixation of this trimalleolar fracture. She will remain in her postoperative splint for the first 10 to 14 days. She will follow up in clinic with x-rays out of splint at the initial postoperative visit. She will then be transitioned into a short-leg cast with an anticipated additional four weeks where she should maintain non/toe- touch weightbearing. Given her obesity, I will plan on keeping her overnight to ensure that she can work with physical therapy and is safe with crutches. We may be looking at getting her a scooter device as well. ALEKSANDR / JOVANI /[id number]
[2018-05-30] MEDS: ceFAZolin 2 GM in Premix Bag 1 BAG IV SCH (22:08)
[2018-05-31] MEDS: Acetaminophen/HYDROcodone 325-7.5 MG Tab PO PRN ×3 (01:40→13:58)
[2018-05-31] MEDS: ceFAZolin 2 GM in Premix Bag 1 BAG IV SCH ×2 (06:23→13:22)
[2018-05-31] MEDS: lamoTRIgine 100 MG Tab PO SCH (08:00)
[2018-05-31] MEDS: ETHOSUXIMIDE 250 MG PO SCH (08:14)
[2018-05-31] MEDS ORDERED: Aspirin 325 MG Tab PO SCH (09:00)
[2018-05-31] MEDS: Ondansetron 4 MG/2 ML SDV IVPUSH PRN (10:03)
--- NOTE | 2018-05-31 11:06 | PN ---
SUBJECTIVE: The patient reports that she is overall doing well overnight. She has been elevating the ankle. She has been getting around with a walker. She had a bit of nausea yesterday, although this has not recurred in spite of taking pain medications since then. Her pain is under reasonable control. She denies chest pain, shortness of breath, or other complaints. OBJECTIVE: VITAL SIGNS: The patient is afebrile. Pulse 82, blood pressure 127/73, saturating 96% on room air. EXTREMITIES: Evaluation of the splint shows it to be clean, dry, and intact. She continues to note some nonspecific numbness involving her toes which is similar to preoperative. She is able to identify light touch to all toes. She has brisk capillary refill to the toes. She can flex and extend the toes within the confines of the splint. ASSESSMENT: Postoperative day #1; status post open reduction, internal fixation of trimalleolar ankle fracture. PLAN: She will have physical therapy this morning. Additionally, a request for a knee scooter was provided. This should be given this morning prior to discharge. Once these are accomplished, the patient can discharge to home. Instructions have been provided. She needs to keep the splint clean and dry. She should elevate at home as much as possible to decrease pain and swelling. Prescriptions were provided to include an aspirin daily, [place] as needed, and Colace as needed. Her postoperative plan with Orthopedics is on 06/09 at 10:20 a.m. ALEKSANDR HAHN /[id number]
[2018-05-31 11:51] VITALS: BP 120/64
== END 2018-05-31 14:50 | disposition home or self-care (01) ==
LOC: MW.ED 13:17 → MW.MS 15:24
PROVIDERS: ADMIT Orthopaedic Surgery; ATTEND Orthopaedic Surgery
DX: S82.851A Displaced trimalleolar fracture of right lower leg, initial encounter for closed fracture (principal); E66.9 Obesity, unspecified; G40.909 Epilepsy, unspecified, not intractable, without status epilepticus; D64.9 Anemia, unspecified; W17.81XA Fall down embankment (hill), initial encounter; Z79.899 Other long term (current) drug therapy; Z91.018 Allergy to other foods
CPT/HCPCS: 27822; 73610; 73700; 76001; 80048; 81025; 85027; 96374; 96375; 96376; 99284; A9270; C1713; C1769; G0378; J0131; J0690; J2270; J2405; J7120; 01480; 99283

== ENCOUNTER 2018-10-27 15:46 | Emergency (ER) | payer OTHER, SELFPAY ==
--- NOTE | 2018-10-27 17:12 | EDM.PDOC ---
ED HPI GENERAL MEDICAL PROBLEM - General Chief Complaint: Back Pain or Injury Stated Complaint: BACK INJURY Time Seen by Provider: 10/27/18 17:07 Source of Information: Reports: Patient History Limitations: Reports: No Limitations - History of Present Illness INITIAL COMMENTS - FREE TEXT/NARRATIVE: HISTORY AND PHYSICAL: History of present illness: Patient is a 27-year-old female here with complaint of head and neck pain. She states that she was sitting on an office chair this morning when it tipped back and she hit her head. She denies any loss of consciousness or vomiting but states she has a headache and feeling dizzy. She is also complaining of pain on her back where it is red. The chairs cloth and she slid back on it and got a rug burn. She denies any fevers, chills, saddle anesthesia, lower extremity weakness or foot drop, loss of bowel or bladder control. Review of systems: As per history of present illness and below otherwise all systems reviewed and negative. Past medical history: As per history of present illness and as reviewed below otherwise noncontributory. Surgical history: As per history of present illness and as reviewed below otherwise noncontributory. Social history: No reported history of drug or alcohol abuse. Family history: As per history of present illness and as reviewed below otherwise noncontributory. Physical exam: General: Patient sitting comfortably in no acute distress and nontoxic appearing HEENT: Atraumatic, normocephalic, pupils reactive, negative for conjunctival pallor or scleral icterus, mucous membranes moist, throat clear, neck supple, nontender, trachea midline. No meningeal signs. Lungs: Clear to auscultation, breath sounds equal bilaterally, chest nontender. Heart: S1S2, regular, negative for clicks, rubs, or overt murmur. Abdomen: Soft, nondistended, nontender. Negative for masses or hepatosplenomegaly. Negative for costovertebral tenderness. Pelvis: Stable nontender. Genitourinary: Deferred. Rectal: Deferred. Spine: No vertebral tenderness or step-offs to palpation. There is a large red area in the middle of the back that is tender to touch. Extremities: Atraumatic, negative for cords or calf pain. Neurovascular unremarkable. Neuro: Awake, alert, oriented. Cranial nerves II through XII unremarkable. Cerebellum unremarkable. Motor and sensory unremarkable throughout. Exam nonfocal. Notes: Diagnostics: Head CT Therapeutics: Patient declined toradol Prescriptions: None Impression: Head injury, headache, Friction burn Plan: 1. Ice, tylenol or motrin as needed as instructed 2. follow up with primary care provider 3. Return to ED as needed as discussed Definitive disposition and diagnosis as appropriate pending reevaluation and review of above. 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: Neurological History: Reports: Seizure Other Neuro History: took her meds today - Infectious Disease History Infectious Disease History: Reports: Chicken Pox - Past Surgical History GI Surgical History: Reports: Appendectomy Other Musculoskeletal Surgeries/Procedures:: ankle surgery Social & Family History - Family History Family Medical History: Noncontributory - Tobacco Use Smoking Status *Q: Never Smoker - Caffeine Use Caffeine Use: Reports: Coffee - Recreational Drug Use Recreational Drug Use: No ED ROS GENERAL - Review of Systems Review Of Systems: ROS reveals no pertinent complaints other than HPI. ED EXAM,LOWER BACK PAIN/INJURY - Physical Exam Exam: See Below (see dictation) Exam Limited By: No Limitations General Appearance: Alert, WD/WN, No Apparent Distress Ears: Normal External Exam, Normal Canal, Hearing Grossly Normal, Normal TMs Nose: Normal Inspection, Normal Mucosa, No Blood Throat/Mouth: Normal Inspection, Normal Lips, Normal Teeth, Normal Gums, Normal Oropharynx, Normal Voice, No Airway Compromise Head: Atraumatic, Normocephalic Neck: Normal Inspection, Supple, Non-Tender, Full Range of Motion Respiratory/Chest: No Respiratory Distress, Lungs Clear, Normal Breath Sounds, No Accessory Muscle Use, Chest Non-Tender Cardiovascular: Normal Peripheral Pulses, Regular Rate, Rhythm, No Edema, No Gallop, No JVD, No Murmur, No Rub GI/Abdominal: Normal Bowel Sounds, Soft, Non-Tender, No Organomegaly, No Distention, No Abnormal Bruit, No Mass (Female) Exam: Normal External Exam, Normal Speculum Exam, Normal Bimanual Exam Rectal (Female) Exam: Normal Exam, Normal Rectal Tone Back Exam: Normal Inspection, Full Range of Motion, NT Extremities: Normal Inspection, Normal Range of Motion, Non-Tender, No Pedal Edema, Normal Capillary Refill Neurological: Alert, Normal Mood/Affect, Normal Dorsiflexion, CN II-XII Intact, Normal Plantar Flexion, Normal Gait, Normal Reflexes, No Motor/Sensory Deficits , Oriented x 3 Psychiatric: Normal Affect, Normal Mood Skin Exam: Warm, Dry, Intact, Normal Color, No Rash Lymphatic: No Adenopathy Course - Vital Signs Last Recorded V/S: Last Vital Signs Temp 97.3 F 10/27/18 16:58 Pulse 88 10/27/18 16:58 Resp 20 10/27/18 16:58 BP 138/82 10/27/18 16:58 Pulse Ox 99 10/27/18 16:58 - Orders/Labs/Meds Orders: Active Orders 24 hr Category Date Time Status Head wo Cont [CT] Stat Exams 10/27/18 17:12 Taken Labs: Laboratory Tests 10/27/18 Range/Units 17:53 Urine HCG, Qual NEGATIVE (NEGATIVE) Departure - Departure Time of Disposition: 19:00 Disposition: Home, Self-Care 01 Condition: Good Clinical Impression: Friction burn, Head injury, Headache - Discharge Information Referrals: PCP,None [Primary Care Provider] - Forms: ED Department Discharge Additional Instructions: The following information is given to patients seen in the emergency department who are being discharged to home. This information is to outline your options for follow-up care. We provide all patients seen in our emergency department with a follow-up referral. The need for follow-up, as well as the timing and circumstances, are variable depending upon the specifics of your emergency department visit. If you don't have a primary care physician on staff, we will provide you with a referral. We always advise you to contact your personal physician following an emergency department visit to inform them of the circumstance of the visit and for follow-up with them and/or the need for any referrals to a consulting specialist. The emergency department will also refer you to a specialist when appropriate. This referral assures that you have the opportunity for follow-up care with a specialist. All of these measure are taken in an effort to provide you with optimal care, which includes your follow-up. Under all circumstances we always encourage you to contact your private physician who remains a resource for coordinating your care. When calling for follow-up care, please make the office aware that this follow-up is from your recent emergency room visit. If for any reason you are refused follow-up, please contact the [facility] Emergency Department at and asked to speak to the emergency department charge nurse. [facility] [address] [place] [id number] [facility] [address] [place] [id number] 1. Ice, tylenol or motrin as needed as instructed 2. follow up with primary care provider 3. Return to ED as needed as discussed - My Orders Last 24 Hours: My Active Orders 10/27/18 17:12 Head wo Cont [CT] Stat - Assessment/Plan Last 24 Hours: My Active Orders 10/27/18 17:12 Head wo Cont [CT] Stat
[2018-10-27 19:10] VITALS: BP 135/86
--- NOTE | 2018-10-28 18:48 | CT ---
EXAM DATE: 10/27/18 PATIENT'S AGE: 27 Patient: ZURI CHANEL Facility: [place], [place] Site . Site : 1990 Study: CT Head [id number]/10/2019 6:22:19 PM Ordering Physician: Doctor Simmons Final Report: INDICATION: Fell on ice. Noncontrast head CT. COMPARISON: No comparison studies are available. FINDINGS: Axial noncontrast images through the brain parenchyma demonstrates no acute intracranial hemorrhage or mass. No midline shift. No abnormal extra-axial air fluid collections. Mucosal thickening of the maxillary sinuses. Paranasal sinuses mastoid air cells skull and scalp otherwise appears unremarkable. IMPRESSION: No acute intracranial hemorrhage or mass. Please note that all CT scans at this facility use dose modulation, iterative reconstruction, and/or weight-based dosing when appropriate to reduce radiation dose to as low as reasonably achievable. Dictated by Erlinda Ordonez MD @ Oct 27 2018 6:49PM (Electronic Signature) Report Signed by Proxy. MTDD
== END 2018-10-27 19:10 | disposition home or self-care (01) ==
LOC: MW.ED 15:46
DX: S09.90XA Unspecified injury of head, initial encounter (principal); T21.03XA Burn of unspecified degree of upper back, initial encounter; Z90.49 Acquired absence of other specified parts of digestive tract; Z91.018 Allergy to other foods; W01.198A Fall on same level from slipping, tripping and stumbling with subsequent striking against other object, initial encounter
CPT/HCPCS: 70450; 70450-26; 81025; 99284-25

== ENCOUNTER 2018-11-13 15:22 | Emergency (ER) | payer OTHER ==
[2018-11-13 15:39] VITALS: BP 159/106
--- NOTE | 2018-11-13 15:51 | EDM.PDOCBH ---
ED HPI GENERAL MEDICAL PROBLEM - General Chief Complaint: Behavioral/Psych Stated Complaint: MENTAL HEALTH Time Seen by Provider: 11/13/18 15:50 Source of Information: Reports: Patient History Limitations: Reports: No Limitations - History of Present Illness INITIAL COMMENTS - FREE TEXT/NARRATIVE: HISTORY AND PHYSICAL: History of present illness: Patient is a 28-year-old female brought in to ED by police dispatcher for concern about suicidal behavior. Patient states she was at home when she got frustrated and upset stating that she didn't feel that her family appreciated her. She proceeded to grab a knife and lock herself in her room. She states she is not certain why she grabbed it and did not have any intentions of hurting or killing herself. Her sister called the police and she willing came in to the ED. She admits to self cutting as a child but denies any diagnosed of depression or anxiety and has never been treated for this. No history of suicidal attempt. She did make the comment that she felt she would be better off and then maybe her family would appreciate what she does for them. Review of systems: As per history of present illness and below otherwise all systems reviewed and negative. Past medical history: As per history of present illness and as reviewed below otherwise noncontributory. Surgical history: As per history of present illness and as reviewed below otherwise noncontributory. Social history: No reported history of drug or alcohol abuse. Family history: As per history of present illness and as reviewed below otherwise noncontributory. Physical exam: General: Patient sitting comfortably in no acute distress and nontoxic appearing. Tearful on exam. HEENT: Atraumatic, normocephalic, pupils reactive, negative for conjunctival pallor or scleral icterus, mucous membranes moist, throat clear, neck supple, nontender, trachea midline. No meningeal signs. Lungs: Clear to auscultation, breath sounds equal bilaterally, chest nontender. Heart: S1S2, regular, negative for clicks, rubs, or overt murmur. Abdomen: Soft, nondistended, nontender. Negative for masses or hepatosplenomegaly. Negative for costovertebral tenderness. Pelvis: Stable nontender. Genitourinary: Deferred. Rectal: Deferred. Extremities: Atraumatic, negative for cords or calf pain. Neurovascular unremarkable. Neuro: Awake, alert, oriented. Cranial nerves II through XII unremarkable. Cerebellum unremarkable. Motor and sensory unremarkable throughout. Exam nonfocal. Notes: Diagnostics: EKG, CBC, CMP, TSH, UA, urine hcg, UDS, etoh, APAP, ASA Therapeutics: None Prescriptions: None Impression: Suicidal ideation Plan: Discussed with Dr. Ely, psychiatry at [facility], patient accepted for transfer via ground ambulance for suicidal ideation Definitive disposition and diagnosis as appropriate pending reevaluation and review of above. 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: Neurological History: Reports: Seizure Other Neuro History: Epilepsy Psychiatric History: Reports: Depression, Other (See Below) Other Psychiatric History: hx of cutting - Infectious Disease History Infectious Disease History: Reports: Chicken Pox - Past Surgical History GI Surgical History: Reports: Appendectomy Other Musculoskeletal Surgeries/Procedures:: R ankle surgery Social & Family History - Family History Family Medical History: Noncontributory - Tobacco Use Smoking Status *Q: Never Smoker - Caffeine Use Caffeine Use: Reports: None - Recreational Drug Use Recreational Drug Use: No ED ROS GENERAL - Review of Systems Review Of Systems: ROS reveals no pertinent complaints other than HPI. ED EXAM, BEHAVIORAL HEALTH - Physical Exam Exam: See Below (see dictation) COURSE, BEHAVIORAL HEALTH COMP - Course Vital Signs: Last Vital Signs Temp 98.0 F 11/13/18 15:33 Pulse 118 H 11/13/18 15:33 Resp 18 11/13/18 15:33 BP 159/106 H 11/13/18 15:33 Pulse Ox 98 11/13/18 15:33 Orders, Labs, Meds: Active Orders 24 hr Category Date Time Status EKG Documentation Completion [RC] STAT Care 11/13/18 15:36 Active Laboratory Tests 11/13/18 11/13/18 11/13/18 Range/Units 15:48 15:48 16:08 WBC 9.60 (4.0-11.0) K/uL RBC 4.83 (4.30-5.90) M/uL Hgb 9.7 L (12.0-16.0) g/dL Hct 33.2 L (36.0-46.0) % MCV 68.7 L (80.0-98.0) fL MCH 20.1 L (27.0-32.0) pg MCHC 29.2 L (31.0-37.0) g/dL RDW Std Deviation 46.4 (28.0-62.0) fl RDW Coeff of Cristopher 19 H (11.0-15.0) % Plt Count 379 (150-400) K/uL MPV 9.10 (7.40-12.00) fL Neut % (Auto) 61.9 (48.0-80.0) % Lymph % (Auto) 32.3 (16.0-40.0) % Rutherford % (Auto) 4.4 (0.0-15.0) % Eos % (Auto) 1.0 (0.0-7.0) % Baso % (Auto) 0.4 (0.0-1.5) % Neut # (Auto) 5.9 H (1.4-5.7) K/uL Lymph # (Auto) 3.1 H (0.6-2.4) K/uL Rutherford # (Auto) 0.4 (0.0-0.8) K/uL Eos # (Auto) 0.1 (0.0-0.7) K/uL Baso # (Auto) 0.0 (0.0-0.1) K/uL Nucleated RBC % 0.2 /100WBC Nucleated RBCs # 0 K/uL Sodium 140 (136-145) mmol/L Potassium 3.8 (3.5-5.1) mmol/L Chloride 105 (98-107) mmol/L Carbon Dioxide 23.1 (21.0-32.0) mmol/L BUN 12 (7.0-18.0) mg/dL Creatinine 0.7 (0.6-1.0) mg/dL Est Cr Clr Drug Dosing 85.18 mL/min Estimated GFR (MDRD) > 60.0 ml/min Glucose 111 H (74-106) mg/dL Calcium 9.5 (8.5-10.1) mg/dL Magnesium 1.8 (1.8-2.4) mg/dL Total Bilirubin 0.2 (0.2-1.0) mg/dL AST 13 L (15-37) IU/L ALT 18 (14-63) IU/L Alkaline Phosphatase 145 H (46-116) U/L Total Protein 8.0 (6.4-8.2) g/dL Albumin 3.4 (3.4-5.0) g/dL Globulin 4.6 H (2.6-4.0) g/dL Albumin/Globulin Ratio 0.7 L (0.9-1.6) TSH 3rd Generation 1.97 (0.36-3.74) uIU/mL Urine Color YELLOW Urine Appearance CLEAR Urine pH 6.0 (5.0-8.0) Ur Specific [place] >= 1.030 (1.001-1.035) Urine Protein TRACE H (NEGATIVE) mg/dL Urine Glucose (UA) NEGATIVE (NEGATIVE) mg/dL Urine Ketones NEGATIVE (NEGATIVE) mg/dL Urine Occult Blood MODERATE H (NEGATIVE) Urine Nitrite NEGATIVE (NEGATIVE) Urine Bilirubin NEGATIVE (NEGATIVE) Urine Urobilinogen 0.2 (<2.0) EU/dL Ur Leukocyte Esterase NEGATIVE (NEGATIVE) Urine RBC 2-5 (0-2/HPF) Urine WBC 0-2 (0-5/HPF) Ur Epithelial Cells FEW (NONE-FEW) Urine Bacteria FEW (NEGATIVE) Urine Mucus MODERATE (NONE-MOD) Urine HCG, Qual (NEGATIVE) Salicylates 1.1 (0-20) mg/dL Urine Opiates Screen (NEGATIVE) Ur Oxycodone Screen (NEGATIVE) Urine Methadone Screen (NEGATIVE) Acetaminophen 0.0 ug/mL Ur Barbiturates Screen (NEGATIVE) Ur Phencyclidine Scrn (NEGATIVE) Ur Amphetamine Screen (NEGATIVE) U Methamphetamines Scrn (NEGATIVE) U Benzodiazepines Scrn (NEGATIVE) U Cocaine Metab Screen (NEGATIVE) U Marijuana (THC) Screen (NEGATIVE) Ethyl Alcohol <3 mg/dL 11/13/18 11/13/18 Range/Units 16:08 16:08 WBC (4.0-11.0) K/uL RBC (4.30-5.90) M/uL Hgb (12.0-16.0) g/dL Hct (36.0-46.0) % MCV (80.0-98.0) fL MCH (27.0-32.0) pg MCHC (31.0-37.0) g/dL RDW Std Deviation (28.0-62.0) fl RDW Coeff of Cristopher (11.0-15.0) % Plt Count (150-400) K/uL MPV (7.40-12.00) fL Neut % (Auto) (48.0-80.0) % Lymph % (Auto) (16.0-40.0) % Rutherford % (Auto) (0.0-15.0) % Eos % (Auto) (0.0-7.0) % Baso % (Auto) (0.0-1.5) % Neut # (Auto) (1.4-5.7) K/uL Lymph # (Auto) (0.6-2.4) K/uL Rutherford # (Auto) (0.0-0.8) K/uL Eos # (Auto) (0.0-0.7) K/uL Baso # (Auto) (0.0-0.1) K/uL Nucleated RBC % /100WBC Nucleated RBCs # K/uL Sodium (136-145) mmol/L Potassium (3.5-5.1) mmol/L Chloride (98-107) mmol/L Carbon Dioxide (21.0-32.0) mmol/L BUN (7.0-18.0) mg/dL Creatinine (0.6-1.0) mg/dL Est Cr Clr Drug Dosing mL/min Estimated GFR (MDRD) ml/min Glucose (74-106) mg/dL Calcium (8.5-10.1) mg/dL Magnesium (1.8-2.4) mg/dL Total Bilirubin (0.2-1.0) mg/dL AST (15-37) IU/L ALT (14-63) IU/L Alkaline Phosphatase (46-116) U/L Total Protein (6.4-8.2) g/dL Albumin (3.4-5.0) g/dL Globulin (2.6-4.0) g/dL Albumin/Globulin Ratio (0.9-1.6) TSH 3rd Generation (0.36-3.74) uIU/mL Urine Color Urine Appearance Urine pH (5.0-8.0) Ur Specific [place] (1.001-1.035) Urine Protein (NEGATIVE) mg/dL Urine Glucose (UA) (NEGATIVE) mg/dL Urine Ketones (NEGATIVE) mg/dL Urine Occult Blood (NEGATIVE) Urine Nitrite (NEGATIVE) Urine Bilirubin (NEGATIVE) Urine Urobilinogen (<2.0) EU/dL Ur Leukocyte Esterase (NEGATIVE) Urine RBC (0-2/HPF) Urine WBC (0-5/HPF) Ur Epithelial Cells (NONE-FEW) Urine Bacteria (NEGATIVE) Urine Mucus (NONE-MOD) Urine HCG, Qual NEGATIVE (NEGATIVE) Salicylates (0-20) mg/dL Urine Opiates Screen NEGATIVE (NEGATIVE) Ur Oxycodone Screen NEGATIVE (NEGATIVE) Urine Methadone Screen NEGATIVE (NEGATIVE) Acetaminophen ug/mL Ur Barbiturates Screen NEGATIVE (NEGATIVE) Ur Phencyclidine Scrn NEGATIVE (NEGATIVE) Ur Amphetamine Screen NEGATIVE (NEGATIVE) U Methamphetamines Scrn NEGATIVE (NEGATIVE) U Benzodiazepines Scrn NEGATIVE (NEGATIVE) U Cocaine Metab Screen NEGATIVE (NEGATIVE) U Marijuana (THC) Screen NEGATIVE (NEGATIVE) Ethyl Alcohol mg/dL Departure - Departure Time of Disposition: 17:25 Disposition: Home, Self-Care 01 Condition: Good Clinical Impression: Suicidal ideation - Discharge Information Referrals: PCP,Unknown [Primary Care Provider] - Forms: ED Department Discharge - My Orders Last 24 Hours: My Active Orders 11/13/18 15:36 EKG Documentation Completion [RC] STAT - Assessment/Plan Last 24 Hours: My Active Orders 11/13/18 15:36 EKG Documentation Completion [RC] STAT
[2018-11-13 17:11] LABS: CHLORIDE,CL 105 mmol/L (98-107); SODIUM,NA 140 mmol/L (136-145)
== END 2018-11-13 17:27 ==
LOC: MW.ED 15:22
DX: R45.851 Suicidal ideations (principal); Z91.018 Allergy to other foods; Z90.49 Acquired absence of other specified parts of digestive tract
CPT/HCPCS: 36415; 80053; 80305; 81001; 81025; 83735; 84443; 85025; 93005; 99285; G0480

== ENCOUNTER 2019-03-29 18:12 | Emergency (ER) | payer SELFPAY ==
--- NOTE | 2019-03-29 18:37 | EDM.PDOC ---
ED HPI GENERAL MEDICAL PROBLEM - General Chief Complaint: Lower Extremity Injury/Pain Stated Complaint: FOOT PAIN Time Seen by Provider: 03/29/19 18:16 Source of Information: Reports: Patient History Limitations: Reports: No Limitations - History of Present Illness INITIAL COMMENTS - FREE TEXT/NARRATIVE: HISTORY AND PHYSICAL: History of present illness: Patient is a 28-year-old female who presents to the ED today with concern of right ankle injury. Patient states that she had had a surgery several months ago on her ankle. Patient states over the past couple weeks she's had pain more one of the screws feels like it is coming out. Patient states she's twisted ankle on numerous times since and feels that this has worsened the pain around the screw. Patient denies anyone injury leading to a new pain. Patient was seen in the ED on 05/29/2018 and was diagnosed with a trimalleolar fracture and was admitted with surgery the following day. Patient was discharged from the hospital with follow-up instructions. Patient states she never followed up with ortho after discharge. Patient denies fever, chills, chest pain, shortness of breath, or cough. Denies headache, neck stiff ness, change in vision, syncope, or near syncope. Denies nausea, vomiting, abdominal pain, diarrhea, constipation, or dysuria. Has not noted any blood in urine or stool. Patient has been eating and drinking appropriately. Review of systems: As per history of present illness and below otherwise all systems reviewed and negative. Past medical history: As per history of present illness and as reviewed below otherwise noncontributory. Surgical history: As per history of present illness and as reviewed below otherwise noncontributory. Social history: See social history for further information Family history: As per history of present illness and as reviewed below otherwise noncontributory. Physical exam: General: Patient is alert, oriented, and in no acute distress. Patient sitting comfortably on exam table. HEENT: Atraumatic, normocephalic, pupils equal and reactive bilaterally, negative for conjunctival pallor or scleral icterus, mucous membranes moist, TMs normal bilaterally, throat clear, neck supple, nontender, trachea midline. No drooling or trismus noted. No meningeal signs. No hot potato voice noted. Lungs: Clear to auscultation, breath sounds equal bilaterally, chest nontender. Heart: S1S2, regular rate and rhythm without overt murmur Abdomen: Soft, nondistended, nontender. Negative for masses or hepatosplenomegaly. Negative for costovertebral tenderness. Pelvis: Stable nontender. Genitourinary: Deferred. Rectal: Deferred. Skin: Intact, warm, dry. No lesions or rashes noted. Extremities: Atraumatic, negative for cords or calf pain. Neurovascular unremarkable. Scarring of right ankle consistent with surgical history. There is a screw on the lateral ankle that is palpable and mildly painful to palpation. Patient has full range of motion of ankle without deficit for pain. Dorsalis pedis and posterior tibial pulses grossly intact with capillary refill less than 2 seconds. Patient will range of motion of the digits of the right extremity and knee. No edema or erythema noted of the right lower extremity. Neuro: Awake, alert, oriented. Cranial nerves II through XII unremarkable. Cerebellum unremarkable. Motor and sensory unremarkable throughout. Exam nonfocal. Notes: Discussed the importance for follow-up with the orthopedic provider's. Voices understanding and is agreeable to plan of care. Denies any further questions or concerns at this time. Diagnostics: Ankle XR, Foot XR Therapeutics: Walking boot Prescription: Diclofenac Impression: Right ankle pain, unspecified H/O trimalleolar fracture s/p hardware, healed/uncomplicated Plan: 1. Rest, ice, elevate the affected extremity. You can apply ice 15 minutes on, 15 minutes off. 2. Tylenol as directed for pain management or discomfort. Take medication as prescribed. 3. Follow up with the Orthopedic provider as discussed. Return to the ED as needed and as discussed. Definitive disposition and diagnosis as appropriate pending reevaluation and review of above. 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: Musculoskeletal History: Reports: None Neurological History: Reports: Seizure Other Neuro History: Epilepsy Psychiatric History: Reports: Depression, Other (See Below) Other Psychiatric History: hx of cutting - Infectious Disease History Infectious Disease History: Reports: Chicken Pox - Past Surgical History HEENT Surgical History: Reports: None GI Surgical History: Reports: Appendectomy Neurological Surgical History: Reports: None Other Musculoskeletal Surgeries/Procedures:: R ankle surgery Social & Family History - Family History Family Medical History: Noncontributory - Tobacco Use Smoking Status *Q: Never Smoker Second Hand Smoke Exposure: No - Caffeine Use Caffeine Use: Reports: Soda - Recreational Drug Use Recreational Drug Use: No Review of Systems - Review of Systems Review Of Systems: ROS reveals no pertinent complaints other than HPI. ED EXAM, GENERAL - Physical Exam Exam: See Below (See dictation) Course - Vital Signs Last Recorded V/S: Last Vital Signs Temp 35.5 C 03/29/19 18:24 Pulse 83 03/29/19 18:24 Resp 16 03/29/19 18:24 BP 134/91 H 03/29/19 18:24 Pulse Ox 99 03/29/19 18:24 Departure - Departure Time of Disposition: 19:17 Disposition: Home, Self-Care 01 Clinical Impression: History of ankle fracture Ankle pain Qualifiers: Chronicity: unspecified Laterality: right Qualified Code(s): M25.571 - Pain in right ankle and joints of right foot - Discharge Information Referrals: PCP,None [Primary Care Provider] - Forms: ED Department Discharge Additional Instructions: The following information is given to patients seen in the emergency department who are being discharged to home. This information is to outline your options for follow-up care. We provide all patients seen in our emergency department with a follow-up referral. The need for follow-up, as well as the timing and circumstances, are variable depending upon the specifics of your emergency department visit. If you don't have a primary care physician on staff, we will provide you with a referral. We always advise you to contact your personal physician following an emergency department visit to inform them of the circumstance of the visit and for follow-up with them and/or the need for any referrals to a consulting specialist. The emergency department will also refer you to a specialist when appropriate. This referral assures that you have the opportunity for follow-up care with a specialist. All of these measure are taken in an effort to provide you with optimal care, which includes your follow-up. Under all circumstances we always encourage you to contact your private physician who remains a resource for coordinating your care. When calling for follow-up care, please make the office aware that this follow-up is from your recent emergency room visit. If for any reason you are refused follow-up, please contact the [facility] Emergency Department at and asked to speak to the emergency department charge nurse. [facility] [address] [place] [id number] [address] [facility] [address] [place] [address], [address] [place] [address] 1. Rest, ice, elevate the affected extremity. You can apply ice 15 minutes on, 15 minutes off. 2. Tylenol as directed for pain management or discomfort. Take medication as prescribed. 3. Follow up with the Orthopedic provider as discussed. Return to the ED as needed and as discussed.
--- NOTE | 2019-03-29 19:06 | CR ---
INDICATION: Foot pain TECHNIQUE: Foot radiograph 2 views right COMPARISON: None FINDINGS: Bone: No acute fractures or aggressive bone lesions are identified. ORIF of the distal tibia/fibula is partially seen. Joint: The visualized hindfoot, midfoot, and forefoot joints are unremarkable in appearance. No significant ankle effusion is seen. Soft tissue: Unremarkable. No radiopaque foreign bodies are seen. IMPRESSION: 1. No acute osseous injuries or abnormalities are noted. Dictated by: Ananth Powell MD @ 03/29/2019 19:05:16 (Electronically Signed)
--- NOTE | 2019-03-29 19:09 | CR ---
INDICATION: Ankle pain TECHNIQUE: Ankle radiograph 3 views right COMPARISON: 08/25/2018 FINDINGS: Bone: No acute fractures or aggressive bone lesions are identified. ORIF of the distal fibula with metallic compression plate is noted without interval change. There are 2 cannulated lag screws in the medial malleolus. A ghost track with an adjacent metallic suture button is seen in the distal fibula and tibia. Joint: The ankle mortise joint and the visualized hindfoot joints are unremarkable in appearance. No significant ankle effusion is seen. Soft tissue: The Kager fat pad and the Achilles` tendon is normal in appearance. No radiopaque foreign bodies are seen. IMPRESSION: 1. No acute osseous injuries or abnormalities are noted. Dictated by Ananth Powell MD @ 03/29/2019 7:06:22 PM Dictated by: Ananth Powell MD @ 03/29/2019 19:06:30 (Electronically Signed)
[2019-03-29 19:34] VITALS: BP 138/90
== END 2019-03-29 19:33 | disposition home or self-care (01) ==
LOC: MW.ED 18:12
DX: M25.571 Pain in right ankle and joints of right foot (principal); Z91.018 Allergy to other foods; Z91.040 Latex allergy status; Z87.81 Personal history of (healed) traumatic fracture
CPT/HCPCS: 73610-26-RT; 73610-RT; 73620-26-RT; 73620-RT; 99283-25

== ENCOUNTER 2019-05-03 17:03 | Emergency (ER) | payer SELFPAY ==
--- NOTE | 2019-05-03 17:17 | EDM.PDOC ---
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 She has no nausea no vomiting no other trauma or concern no neck pain Review of systems: As per history of present illness and below otherwise all systems reviewed and negative. Past medical history: As per history of present illness and as reviewed below otherwise noncontributory. Surgical history: As per history of present illness and as reviewed below otherwise noncontributory. Social history: No reported history of drug or alcohol abuse. Family history: As per history of present illness and as reviewed below otherwise noncontributory. Physical exam: HEENT: Patient with a small right parietal scalp hematoma noted no laceration no step-off no depression, normocephalic, pupils reactive, negative for conjunctival pallor or scleral icterus, mucous membranes moist, throat clear, neck supple, nontender, trachea midline. Lungs: Clear to auscultation, breath sounds equal bilaterally, chest nontender. Heart: S1S2, regular, negative for clicks, rubs, or JVD. Abdomen: Soft, nondistended, nontender. Negative for masses or hepatosplenomegaly. Negative for costovertebral tenderness. Pelvis: Stable nontender. Genitourinary: Deferred. Rectal: Deferred. Extremities: Atraumatic, negative for cords or calf pain. Neurovascular unremarkable. Neuro: Awake, alert, oriented. Cranial nerves II through XII unremarkable. Cerebellum unremarkable. Motor and sensory unremarkable throughout. Exam nonfocal. Diagnostics: CT scan brain Therapeutics: None Impression: #1 seizure with known seizure disorder #2 medical noncompliance #3 head injury for medical screening exam Definitive disposition and diagnosis as appropriate pending reevaluation and review of above. 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: Musculoskeletal History: Reports: None Neurological History: Reports: Seizure Other Neuro History: Epilepsy Psychiatric History: Reports: Depression, Other (See Below) Other Psychiatric History: hx of cutting - Infectious Disease History Infectious Disease History: Reports: Chicken Pox - Past Surgical History HEENT Surgical History: Reports: None GI Surgical History: Reports: Appendectomy Neurological Surgical History: Reports: None Other Musculoskeletal Surgeries/Procedures:: R ankle surgery Social & Family History - Family History Family Medical History: Noncontributory - Tobacco Use Smoking Status *Q: Never Smoker - Caffeine Use Caffeine Use: Reports: Soda - Recreational Drug Use Recreational Drug Use: No ED ROS GENERAL - Review of Systems Review Of Systems: ROS reveals no pertinent complaints other than HPI. ED EXAM, GENERAL - Physical Exam Exam: See Below (See dictation) Course - Vital Signs Last Recorded V/S: Last Vital Signs Temp 36.9 C 05/03/19 17:04 Pulse 97 05/03/19 17:04 Resp 18 05/03/19 17:04 BP 129/84 05/03/19 17:04 Pulse Ox 98 05/03/19 17:04 - Orders/Labs/Meds Orders: Active Orders 24 hr Category Date Time Status Head wo Cont [CT] Stat Exams 05/03/19 17:11 Ordered Departure - Departure Time of Disposition: 17:13 Disposition: Home, Self-Care 01 Condition: Good Clinical Impression: Seizure disorder, Head injury, Medical non-compliance, Encounter for medical screening examination - Discharge Information Additional Instructions: The following information is given to patients seen in the emergency department who are being discharged to home. This information is to outline your options for follow-up care. We provide all patients seen in our emergency department with a follow-up referral. The need for follow-up, as well as the timing and circumstances, are variable depending upon the specifics of your emergency department visit. If you don't have a primary care physician on staff, we will provide you with a referral. We always advise you to contact your personal physician following an emergency department visit to inform them of the circumstance of the visit and for follow-up with them and/or the need for any referrals to a consulting specialist. The emergency department will also refer you to a specialist when appropriate. This referral assures that you have the opportunity for followup care with a specialist. All of these measure are taken in an effort to provide you with optimal care, which includes your followup. Under all circumstances we always encourage you to contact your private physician who remains a resource for coordinating your care. When calling for followup care, please make the office aware that this follow-up is from your recent emergency room visit. If for any reason you are refused follow-up, please contact the [facility] emergency department at and asked to speak to the emergency department charge nurse. Medications as directed follow-up primary medical doctor Tylenol as directed return as needed as discussed - My Orders Last 24 Hours: My Active Orders 05/03/19 17:11 Head wo Cont [CT] Stat - Assessment/Plan Last 24 Hours: My Active Orders 05/03/19 17:11 Head wo Cont [CT] Stat
--- NOTE | 2019-05-03 18:27 | CT ---
INDICATION: Headache, burning to left arm after having 2 seizures TECHNIQUE: CT Head without i.v. contrast. COMPARISON: 10/27/2018 FINDINGS: CSF space: The ventricles are normal for age. Brain: No evidence of mass, acute infarction or hemorrhage is seen. No mass-effect or midline shift is seen. The brain parenchyma is otherwise normal in appearance with preservation of the pearson-white matter junction. Calvarium: The visualized paranasal sinuses are well aerated. The mastoid air cells are clear. The visualized orbits are grossly unremarkable. The calvarium is unremarkable in appearance with no fractures identified. Small scalp hematoma is present over the right posterior vertex. IMPRESSION: 1. No evidence of acute infarction, intracranial hemorrhage, or mass-effect seen. Dictated by Ananth Powell MD @ 05/03/2019 6:26:02 PM Please note that all CT scans at this facility use dose modulation, iterative reconstruction, and/or weight-based dosing when appropriate to reduce radiation dose to as low as reasonably achievable. Dictated by: Ananth Powell MD @ 05/03/2019 18:26:20 (Electronically Signed)
[2019-05-03 19:05] VITALS: BP 128/71
== END 2019-05-03 19:05 | disposition home or self-care (01) ==
LOC: MW.ED 17:03
DX: S00.03XA Contusion of scalp, initial encounter (principal); G40.909 Epilepsy, unspecified, not intractable, without status epilepticus; F32.9 Major depressive disorder, single episode, unspecified; Z91.040 Latex allergy status; Z91.018 Allergy to other foods; Z79.899 Other long term (current) drug therapy; Z91.14 Patient's other noncompliance with medication regimen; W18.39XA Other fall on same level, initial encounter
CPT/HCPCS: 70450; 70450-26; 99284-25

== ENCOUNTER 2021-05-17 12:58 | Emergency (ER) | payer MEDICAID ==
--- NOTE | 2021-05-17 13:08 | PCM.EKG ---
#1 Interpretation EKG Date: 05/17/21 Time: 13:01 Rhythm: NSR Rate (Beats/Min): 93 [place]: Normal P-Wave: Present QRS: Normal ST-T: Normal QT: Normal OH/PQ Interval: 163 EKG Interpretation Comments: normal EKG
[2021-05-17 13:53] LABS: BLOOD UREA NITROGEN,BUN 9 mg/dL (7.0-18.0); CARBON DIOXIDE,CO2 26.3 mmol/L (21.0-32.0); CHLORIDE,CL 102 mmol/L (98-107); GLUCOSE RANDOM 125 mg/dL (74-106); POTASSIUM,K 3.7 mmol/L (3.5-5.1); SODIUM,NA 139 mmol/L (136-145)
[2021-05-17] MEDS ORDERED: LORazepam 1 MG Tab PO ONE (14:12)
--- NOTE | 2021-05-17 14:20 | EDM.PDOC ---
ED HPI GENERAL MEDICAL PROBLEM - General Chief Complaint: General Stated Complaint: ANXIETY Time Seen by Provider: 05/17/21 12:59 Source of Information: Reports: Patient History Limitations: Reports: No Limitations - History of Present Illness INITIAL COMMENTS - FREE TEXT/NARRATIVE: HISTORY AND PHYSICAL: History of present illness: Patient is a 30-year-old female who presents emergency room today with concern of chest pain feeling like she cannot take a deep breath and and anxiety that started approximately 1 hour prior to arrival to the emergency room and states that she is concerned that she has been having panic attacks over the past 2 days. Patient states that she gets these overwhelming sensation and feels like she cannot take a deep breath and and has to hold her mouth open and has some associated chest discomfort with doing this. Patient states that this has been ongoing for the past 2 days and states that it was more significant approximately 1 hour prior to arrival to the emergency room so she came in for evaluation. Patient states that she has not taken anything for her symptoms. Patient denies any other symptoms or concerns. Patient denies fever, chills, or cough. Denies headache, neck stiff ness, change in vision, syncope, or near syncope. Denies nausea, vomiting, abdominal pain, diarrhea, constipation, or dysuria. Has not noted any blood in urine or stool. Patient has been eating and drinking appropriately. Review of systems: As per history of present illness and below otherwise all systems reviewed and negative. Past medical history: As per history of present illness and as reviewed below otherwise noncontributory. Surgical history: As per history of present illness and as reviewed below otherwise noncontributory. Social history: See social history for further information Family history: As per history of present illness and as reviewed below otherwise noncontributory. Physical exam: General: Patient is alert, oriented, and in no acute distress. Patient sitting comfortably on exam table. Vitals stable and reviewed by me patient is tearful on exam and anxious appearing. HEENT: Atraumatic, normocephalic, pupils equal and reactive bilaterally, negative for conjunctival pallor or scleral icterus, mucous membranes moist, TMs normal bilaterally, throat clear, neck supple, nontender, trachea midline. No drooling or trismus noted. No meningeal signs. No hot potato voice noted. Lungs: Clear to auscultation, breath sounds equal bilaterally, chest nontender. Heart: S1S2, regular rate and rhythm without overt murmur Abdomen: Soft, nondistended, nontender. Negative for masses or hepatosplenomegaly. Negative for costovertebral tenderness. Pelvis: Stable nontender. Genitourinary: Deferred. Rectal: Deferred. Skin: Intact, warm, dry. No lesions or rashes noted. Extremities: Atraumatic, negative for cords or calf pain. Neurovascular unremarkable. Neuro: Awake, alert, oriented. Cranial nerves II through XII unremarkable. Cerebellum unremarkable. Motor and sensory unremarkable throughout. Exam nonfocal. Notes: Patient is a 30-year-old female who presents emergency room today secondary to chest pain with difficulty taking a deep breath in, and anxiety that started approximately 1 hour prior to arrival to the emergency room. Upon arrival to the ED, patient is vitally stable and well-appearing on exam but is tearful throughout exam and anxious appearing. Will obtain cardiac evaluation and reassess patient. See Dr. Jauregui's dictation for specific EKG interpretation. However, normal sinus rhythm without STEMI or ischemic changes. CBC shows microcytic anemia with a hemoglobin of 10 and hematocrit of 33. Comparison to past lab work, this is stable and appears chronic. Other mild derangements of CBC unremarkable. D-dimer is within normal limits. CMP shows a mildly elevated glucose at 125, isolated elevation of alk phos of 134 which is nonspecific in isolation. Troponin negative. Other mild derangements of CMP unremarkable. hCG is negative. Chest x-ray shows no acute cardiopulmonary findings. HEART score low risk. Upon reevaluation of patient, she remains vitally stable and comfortable throughout stay in ED. Patient is no longer anxious appearing on exam and states that she has improvement of her symptoms. Strict return precautions thoroughly discussed with patient. Discussed importance for follow-up with a primary care provider. Voices understanding and is agreeable to plan of care. Denies any further questions or concerns at this time. Diagnostics: EKG, CBC, CMP, D-dimer, hCG, troponin, chest x-ray Therapeutics: Ativan Prescription: None Impression: Atypical chest pain Anxiety Plan: 1. You can alternate ibuprofen and Tylenol as directed for pain and discomfort. 2. Follow-up with your primary care provider as discussed. Return to the ED as needed and as discussed. Definitive disposition and diagnosis as appropriate pending reevaluation and review of above. 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: Musculoskeletal History: Reports: None Neurological History: Reports: Seizure Other Neuro History: Epilepsy Psychiatric History: Reports: Depression, Other (See Below) Other Psychiatric History: hx of cutting - Infectious Disease History Infectious Disease History: Reports: Chicken Pox - Past Surgical History HEENT Surgical History: Reports: None GI Surgical History: Reports: Appendectomy Neurological Surgical History: Reports: None Other Musculoskeletal Surgeries/Procedures:: R ankle surgery Social & Family History - Family History Family Medical History: No Pertinent Family History - Tobacco Use Tobacco Use Status *Q: Unknown Ever Used Tobacco - Caffeine Use Caffeine Use: Reports: Soda - Recreational Drug Use Recreational Drug Use: No ED ROS GENERAL - Review of Systems Review Of Systems: Comprehensive ROS is negative, except as noted in HPI. ED EXAM, GENERAL - Physical Exam Exam: See Below (see dictation) Course - Vital Signs Last Recorded V/S: Last Vital Signs Temp 99.1 F 05/17/21 13:04 Pulse 82 05/17/21 16:29 Resp 16 05/17/21 16:29 BP 136/76 05/17/21 16:29 Pulse Ox 100 05/17/21 16:29 - Orders/Labs/Meds Orders: Active Orders 24 hr Category Date Time Status COVID-19/FLU A+B [[facility]LEC] Stat Lab 05/17/21 13:08 Ordered Labs: Laboratory Tests 05/17/21 05/17/21 05/17/21 Range/Units 13:20 13:20 13:20 WBC 5.87 (4.0-11.0) K/uL RBC 4.67 (4.30-5.90) M/uL Hgb 10.0 L (12.0-16.0) g/dL Hct 33.0 L (36.0-46.0) % MCV 70.7 L (80.0-98.0) fL MCH 21.4 L (27.0-32.0) pg MCHC 30.3 L (31.0-37.0) g/dL RDW Std Deviation 45.9 (28.0-62.0) fl RDW Coeff of Cristopher 18 H (11.0-15.0) % Plt Count 297 (150-400) K/uL MPV 9.20 (7.40-12.00) fL Neut % (Auto) 67.0 (48.0-80.0) % Lymph % (Auto) 22.1 (16.0-40.0) % [place] % (Auto) 9.0 (0.0-15.0) % Eos % (Auto) 1.4 (0.0-7.0) % Baso % (Auto) 0.5 (0.0-1.5) % Neut # (Auto) 3.9 (1.4-5.7) K/uL Lymph # (Auto) 1.3 (0.6-2.4) K/uL Ren[place] # (Auto) 0.5 (0.0-0.8) K/uL Eos # (Auto) 0.1 (0.0-0.7) K/uL Baso # (Auto) 0.0 (0.0-0.1) K/uL Nucleated RBC % 0.0 /100WBC Nucleated RBCs # 0 K/uL D-Dimer, Quantitative 0.36 (0.0-0.50) mg/L FEU Sodium 139 (136-145) mmol/L Potassium 3.7 (3.5-5.1) mmol/L Chloride 102 (98-107) mmol/L Carbon Dioxide 26.3 (21.0-32.0) mmol/L BUN 9 (7.0-18.0) mg/dL Creatinine 0.8 (0.6-1.0) mg/dL Est Cr Clr Drug Dosing 73.19 mL/min Estimated GFR (MDRD) > 60.0 ml/min Glucose 125 H (74-106) mg/dL Calcium 8.7 (8.5-10.1) mg/dL Total Bilirubin 0.2 (0.2-1.0) mg/dL AST 15 (15-37) IU/L ALT 20 (14-63) IU/L Alkaline Phosphatase 134 H (46-116) U/L Troponin I < 0.050 (0.000-0.056) ng/mL Total Protein 7.4 (6.4-8.2) g/dL Albumin 3.2 L (3.4-5.0) g/dL Globulin 4.2 H (2.6-4.0) g/dL Albumin/Globulin Ratio 0.8 L (0.9-1.6) HCG, Qual (NEG) 05/17/21 Range/Units 13:20 WBC (4.0-11.0) K/uL RBC (4.30-5.90) M/uL Hgb (12.0-16.0) g/dL Hct (36.0-46.0) % MCV (80.0-98.0) fL MCH (27.0-32.0) pg MCHC (31.0-37.0) g/dL RDW Std Deviation (28.0-62.0) fl RDW Coeff of Cristopher (11.0-15.0) % Plt Count (150-400) K/uL MPV (7.40-12.00) fL Neut % (Auto) (48.0-80.0) % Lymph % (Auto) (16.0-40.0) % [place] % (Auto) (0.0-15.0) % Eos % (Auto) (0.0-7.0) % Baso % (Auto) (0.0-1.5) % Neut # (Auto) (1.4-5.7) K/uL Lymph # (Auto) (0.6-2.4) K/uL [place] # (Auto) (0.0-0.8) K/uL Eos # (Auto) (0.0-0.7) K/uL Baso # (Auto) (0.0-0.1) K/uL Nucleated RBC % /100WBC Nucleated RBCs # K/uL D-Dimer, Quantitative (0.0-0.50) mg/L FEU Sodium (136-145) mmol/L Potassium (3.5-5.1) mmol/L Chloride (98-107) mmol/L Carbon Dioxide (21.0-32.0) mmol/L BUN (7.0-18.0) mg/dL Creatinine (0.6-1.0) mg/dL Est Cr Clr Drug Dosing mL/min Estimated GFR (MDRD) ml/min Glucose (74-106) mg/dL Calcium (8.5-10.1) mg/dL Total Bilirubin (0.2-1.0) mg/dL AST (15-37) IU/L ALT (14-63) IU/L Alkaline Phosphatase (46-116) U/L Troponin I (0.000-0.056) ng/mL Total Protein (6.4-8.2) g/dL Albumin (3.4-5.0) g/dL Globulin (2.6-4.0) g/dL Albumin/Globulin Ratio (0.9-1.6) HCG, Qual NEGATIVE (NEG) Meds: Medications Discontinued Medications Generic Name Dose Route Start Last Admin Trade Name Freq PRN Reason Stop Dose Admin Lorazepam 1 mg 05/17/21 14:12 05/17/21 14:37 Lorazepam 1 Mg Tab PO 05/17/21 14:13 1 mg ONETIME ONE Administration Departure - Departure Time of Disposition: 16:14 Disposition: Home, Self-Care 01 Clinical Impression: Atypical chest pain, Anxiety - Discharge Information Instructions: Nonspecific Chest Pain, Adult, [id number] Referrals: PCP,Not In Area [Primary Care Provider] - Forms: ED Department Discharge Additional Instructions: The following information is given to patients seen in the emergency department who are being discharged to home. This information is to outline your options for follow-up care. We provide all patients seen in our emergency department with a follow-up referral. The need for follow-up, as well as the timing and circumstances, are variable depending upon the specifics of your emergency department visit. If you don't have a primary care physician on staff, we will provide you with a referral. We always advise you to contact your personal physician following an emergency department visit to inform them of the circumstance of the visit and for follow-up with them and/or the need for any referrals to a consulting specialist. The emergency department will also refer you to a specialist when appropriate. This referral assures that you have the opportunity for follow-up care with a specialist. All of these measure are taken in an effort to provide you with optimal care, which includes your follow-up. Under all circumstances we always encourage you to contact your private physician who remains a resource for coordinating your care. When calling for follow-up care, please make the office aware that this follow-up is from your recent emergency room visit. If for any reason you are refused follow-up, please contact the [facility] Emergency Department at and asked to speak to the emergency department charge nurse. [facility] [address] [place] [id number] [facility] [address] [place] [id number] 1. You can alternate ibuprofen and Tylenol as directed for pain and discomfort. 2. Follow-up with your primary care provider as discussed. Return to the ED as needed and as discussed. Sepsis Event Note (ED) - Evaluation Sepsis Screening Result: No Definite Risk - Focused Exam Vital Signs: Vital Signs Temp Pulse Resp BP Pulse Ox 05/17/21 16:29 82 16 136/76 100 05/17/21 14:39 90 16 131/74 99 05/17/21 13:50 85 16 99 05/17/21 13:04 99.1 F 90 22 H 140/93 H 99 - My Orders Last 24 Hours: My Active Orders 05/17/21 13:08 COVID-19/FLU A+B [MOLEC] Stat - Assessment/Plan Last 24 Hours: My Active Orders 05/17/21 13:08 COVID-19/FLU A+B [MOLEC] Stat
[2021-05-17 16:29] VITALS: BP 136/76; PULSE 82
--- NOTE | 2021-05-17 16:36 | CR ---
INDICATION: Shortness of breath TECHNIQUE: Chest 2 views. COMPARISON: Chest x-ray 08/15/2018 FINDINGS: The heart is normal in size. The pulmonary vasculature is within normal limits. The lungs are clear without focal consolidation, pleural effusion or pneumothorax. The bones are unremarkable. IMPRESSION: No acute process. Dictated by Romana Matthew MD @ 05/17/2021 4:35:[address] Romana Matthew @ May 17 2021 4:35PM
== END 2021-05-17 16:32 | disposition home or self-care (01) ==
LOC: MW.ED 12:58
DX: R07.89 Other chest pain (principal); F41.9 Anxiety disorder, unspecified; Z91.018 Allergy to other foods; Z91.040 Latex allergy status
CPT/HCPCS: 36415; 71046; 80053; 84484; 84703; 85025; 85379; 93005; 99285; A9270

== ENCOUNTER 2021-11-11 16:45 | Emergency (ER) | payer MEDICAID ==
[2021-11-11 18:39] LABS: BLOOD UREA NITROGEN,BUN 8 mg/dL (7.0-18.0); CHLORIDE,CL 102 mmol/L (98-107); GLUCOSE RANDOM 120 mg/dL (74-106); LIPASE 116 U/L (73-393); POTASSIUM,K 4.1 mmol/L (3.5-5.1); SODIUM,NA 137 mmol/L (136-145)
[2021-11-11 19:37] VITALS: BP 119/65; PULSE 67
== END 2021-11-11 19:35 | disposition home or self-care (01) ==
LOC: MW.ED 16:45
DX: O23.11 Infections of bladder in pregnancy, first trimester (principal); Z91.018 Allergy to other foods; Z91.040 Latex allergy status; Z3A.01 Less than 8 weeks gestation of pregnancy
CPT/HCPCS: 36415; 80053; 81001; 81025; 83690; 84702; 85025; 87086; 99284

== ENCOUNTER 2021-11-13 18:47 | Emergency (ER) | payer MEDICAID ==
[2021-11-13 20:45] LABS: BLOOD UREA NITROGEN,BUN 10 mg/dL (7.0-18.0); CARBON DIOXIDE,CO2 24.7 mmol/L (21.0-32.0); CHLORIDE,CL 101 mmol/L (98-107); GLUCOSE RANDOM 104 mg/dL (74-106); SODIUM,NA 137 mmol/L (136-145)
[2021-11-13 21:30] VITALS: BP 136/80; PULSE 71
== END 2021-11-13 21:33 | disposition home or self-care (01) ==
LOC: MW.ED 18:47
DX: O23.11 Infections of bladder in pregnancy, first trimester (principal); Z91.040 Latex allergy status; Z91.018 Allergy to other foods; Z3A.01 Less than 8 weeks gestation of pregnancy
CPT/HCPCS: 36415; 76817; 76817-26; 80053; 81001; 84702; 85025; 99284-25

== ENCOUNTER 2021-12-30 11:59 | Emergency (ER) | payer MEDICAID ==
[2021-12-30] MEDS ORDERED: Ondansetron 4 MG/2 ML SDV IVPUSH ONE (12:19)
[2021-12-30] MEDS ORDERED: Sodium Chloride 0.9% 1,000 ML IV ONE (12:19)
[2021-12-30 13:07] LABS: BLOOD UREA NITROGEN,BUN 4 mg/dL (7.0-18.0); CARBON DIOXIDE,CO2 22.5 mmol/L (21.0-32.0); CHLORIDE,CL 102 mmol/L (98-107); ESTIMATED GFR > 60.0 ml/min; GLUCOSE RANDOM 86 mg/dL (74-106); POTASSIUM,K 3.7 mmol/L (3.5-5.1); SODIUM,NA 136 mmol/L (136-145)
[2021-12-30] MEDS ORDERED: cefTRIAXone 1 GM in Sodium Chloride 0.9% 50 ML IV ONE (13:17)
[2021-12-30 14:30] VITALS: BP 121/68; PULSE 74
== END 2021-12-30 14:25 | disposition home or self-care (01) ==
LOC: MW.ED 11:59
DX: O23.42 Unspecified infection of urinary tract in pregnancy, second trimester (principal); K52.9 Noninfective gastroenteritis and colitis, unspecified; Z91.040 Latex allergy status; Z3A.15 15 weeks gestation of pregnancy
CPT/HCPCS: 36415; 80053; 81001; 85025; 96365; 96375; 99284; J0696; J2405; J7030; 99283

== ENCOUNTER 2022-01-04 18:06 | Emergency (ER) | payer MEDICAID ==
[2022-01-04 21:44] VITALS: BP 138/68; PULSE 78
== END 2022-01-04 21:41 | disposition home or self-care (01) ==
LOC: MW.ED 18:06
DX: O9A.23 Injury, poisoning and certain other consequences of external causes complicating the puerperium (principal); S99.912A Unspecified injury of left ankle, initial encounter; Z3A.15 15 weeks gestation of pregnancy; Z91.040 Latex allergy status; Z91.018 Allergy to other foods; X50.1XXA Overexertion from prolonged static or awkward postures, initial encounter
CPT/HCPCS: 73610-26-LT; 73610-LT; 99283; 99283-25

== ENCOUNTER 2022-01-26 17:41 | Emergency (ER) | payer MEDICAID ==
[2022-01-26 18:28] LABS: BLOOD UREA NITROGEN,BUN 8 mg/dL (7.0-18.0); CARBON DIOXIDE,CO2 23.3 mmol/L (21.0-32.0); CHLORIDE,CL 101 mmol/L (98-107); GLUCOSE RANDOM 102 mg/dL (74-106); LIPASE 72 U/L (73-393); POTASSIUM,K 3.6 mmol/L (3.5-5.1); SODIUM,NA 135 mmol/L (136-145)
[2022-01-26] MEDS ORDERED: cefTRIAXone 1 GM in Sodium Chloride 0.9% 50 ML IV ONE (19:04)
[2022-01-26 21:14] VITALS: BP 110/70; PULSE 76
== END 2022-01-26 21:12 | disposition home or self-care (01) ==
LOC: MW.ED 17:41
DX: O23.12 Infections of bladder in pregnancy, second trimester (principal); N30.01 Acute cystitis with hematuria; Z3A.19 19 weeks gestation of pregnancy; Z91.040 Latex allergy status
CPT/HCPCS: 36415; 76700; 76815; 80053; 81001; 83690; 85025; 87086; 96365; 99284; J0696; 99283

== ENCOUNTER 2022-03-09 17:26 | Emergency (ER) | payer MEDICAID ==
[2022-03-09] MEDS ORDERED: Lactated Ringers 1,000 ML IV STA (17:36)
[2022-03-09 18:45] LABS: BLOOD UREA NITROGEN,BUN 7 mg/dL (7.0-18.0); CARBON DIOXIDE,CO2 23.3 mmol/L (21.0-32.0); CHLORIDE,CL 102 mmol/L (98-107); GLUCOSE RANDOM 78 mg/dL (74-106); POTASSIUM,K 3.9 mmol/L (3.5-5.1); SODIUM,NA 134 mmol/L (136-145)
[2022-03-09 19:51] VITALS: BP 110/82; PULSE 70
== END 2022-03-09 20:16 | disposition home or self-care (01) ==
LOC: MW.ED 17:26
DX: O23.12 Infections of bladder in pregnancy, second trimester (principal); N30.01 Acute cystitis with hematuria; R06.00 Dyspnea, unspecified; R20.2 Paresthesia of skin; R55 Syncope and collapse; Z3A.24 24 weeks gestation of pregnancy; Z20.822 Contact with and (suspected) exposure to COVID-19
CPT/HCPCS: 36415; 80053; 81001; 84484; 85025; 87086; 87635; 93005; 96360; 99284; J7120; U0002

== ENCOUNTER 2022-06-20 00:05 | Inpatient (IN) | payer MEDICAID ==
[2022-06-20] MEDS ORDERED: Misoprostol 200 MCG Tab PO PRN (00:27)
[2022-06-20] MEDS ORDERED: Sodium Chloride 0.9% 2.5 ML Syringe FLUSH PRN (00:27)
[2022-06-20] MEDS ORDERED: Terbutaline 1 MG/ML SDV SUBCUT PRN (00:27)
[2022-06-20] MEDS ORDERED: Butorphanol 1 MG/ML SDV IVPUSH PRN (00:27)
[2022-06-20] MEDS ORDERED: Sodium Chloride 0.9% 20 ML SDV IV PRN (00:27)
[2022-06-20] MEDS ORDERED: Carboprost Tromethamine 250 MCG/1 ML Amp IM PRN ×2 (00:27→12:40)
[2022-06-20] MEDS ORDERED: Lidocaine 1% 50 ML MDV INJECT PRN (00:27)
[2022-06-20] MEDS ORDERED: Water For Irrigation,Sterile 1,000 ML Container IRR PRN (00:27)
[2022-06-20] MEDS ORDERED: Methylergonovine 0.2 MG/1 ML Amp IM PRN (00:27)
[2022-06-20] MEDS ORDERED: Sodium Chloride 0.9% 10 ML Syringe FLUSH PRN (00:27)
[2022-06-20] MEDS ORDERED: Tranexamic Acid 1,000 MG in Sodium Chloride 0.9% 100 ML IV PRN (00:27)
[2022-06-20] MEDS ORDERED: Ondansetron 4 MG/2 ML SDV IVPUSH PRN (00:27)
[2022-06-20] MEDS ORDERED: Oxytocin/0.9 % Sodium Chloride 30 UNIT/500 ML BAG IV SCH ×2 (00:30)
[2022-06-20] MEDS ORDERED: Lactated Ringers 1,000 ML IV SCH (00:30)
[2022-06-20] MEDS ORDERED: Misoprostol 25 MCG (1/4 of 100 MCG) Tab VAG PRN ×2 (01:00→05:00)
[2022-06-20] MEDS ORDERED: buPROPion 150 MG Tab.ER PO SCH ×4 (04:06→09:00)
[2022-06-20] MEDS ORDERED: Folic Acid 1 MG Tab PO SCH ×2 (04:08→09:00)
[2022-06-20] MEDS ORDERED: lamoTRIgine 100 MG Tab PO SCH ×3 (04:08→09:00)
[2022-06-20] MEDS ORDERED: Patient's Own Medication 1 Each PO SCH (04:08)
[2022-06-20] MEDS ORDERED: Prenatal Multivitamin with Calcium/Folic Acid/Iron Tab PO SCH ×2 (04:08→09:00)
[2022-06-20] MEDS ORDERED: LAMOTRIGINE 200 MG PO SCH (09:00)
[2022-06-20] MEDS ORDERED: ETHOSUXIMIDE 250 MG PO SCH (09:00)
[2022-06-20] MEDS ORDERED: Ropivacaine/PF 400 MG/200 ML PCA ONE (11:45)
[2022-06-20] MEDS ORDERED: ePHEDrine 50 MG/ML SDV IVPUSH PRN ×2 (12:13)
[2022-06-20] MEDS ORDERED: Ropivacaine HCl/PF 400 MG in Premix Bag 1 BAG EPIDUR SCH (12:15)
[2022-06-20] MEDS ORDERED: Phenylephrine HCl In 0.9% NaCl 1 MG/10 ML Vial IVPUSH SCH (12:15)
[2022-06-20] MEDS ORDERED: Tranexamic Acid 1,000 MG/10 ML Vial ONE (12:28)
[2022-06-20] MEDS ORDERED: Bisacodyl 10 MG Supp RECTAL PRN (12:40)
[2022-06-20] MEDS ORDERED: Acetaminophen 500 MG Tab PO PRN ×2 (12:40)
[2022-06-20] MEDS ORDERED: Docusate Sodium 100 MG Cap PO PRN (12:40)
[2022-06-20] MEDS ORDERED: Witch Hazel Medicated Pads 40/Jar TOP PRN (12:40)
[2022-06-20] MEDS ORDERED: Ibuprofen 400 MG Tab PO PRN (12:40)
[2022-06-20] MEDS ORDERED: Ibuprofen 800 MG Tab PO PRN (12:40)
[2022-06-20] MEDS ORDERED: Lanolin 100% Cream 7 GM Tube TOP PRN (12:40)
[2022-06-20] MEDS ORDERED: Benzocaine/Menthol 20%-0.5% Spray 78 GM Cannister TOP PRN (12:40)
[2022-06-21 05:12] VITALS: PULSE 64
[2022-06-21 08:03] VITALS: BP 134/72
== END 2022-06-21 15:05 | disposition home or self-care (01) | DRG 806 ==
LOC: MW.OBCHECK 00:05 → MW.OB 00:27 → OBSVTOIN 12:40 → MW.OB 12:40
PROVIDERS: ADMIT Obstetrics & Gynecology; ATTEND Obstetrics & Gynecology
PROC: 10E0XZZ Delivery of Products of Conception, External Approach (ICD-10-PCS; principal; 2022-06-20)
PROC: 10907ZC Drainage of Amniotic Fluid, Therapeutic from Products of Conception, Via Natural or Artificial Opening (ICD-10-PCS; 2022-06-20)
PROC: 3E033VJ Introduction of Other Hormone into Peripheral Vein, Percutaneous Approach (ICD-10-PCS; 2022-06-20)
PROC: 3E0P7VZ Introduction of Hormone into Female Reproductive, Via Natural or Artificial Opening (ICD-10-PCS; 2022-06-20)
PROC: 3E0R3BZ Introduction of Anesthetic Agent into Spinal Canal, Percutaneous Approach (ICD-10-PCS; 2022-06-20)
PROC: 00HU33Z Insertion of Infusion Device into Spinal Canal, Percutaneous Approach (ICD-10-PCS; 2022-06-20)
DX: O99.214 Obesity complicating childbirth (principal); O99.354 Diseases of the nervous system complicating childbirth; Z37.0 Single live birth; O69.81X0 Labor and delivery complicated by cord around neck, without compression, not applicable or unspecified; G40.909 Epilepsy, unspecified, not intractable, without status epilepticus; O13.4 Gestational [pregnancy-induced] hypertension without significant proteinuria, complicating childbirth; Z20.822 Contact with and (suspected) exposure to COVID-19; Z3A.39 39 weeks gestation of pregnancy
CPT/HCPCS: 01967; 36415; 59025; 59409; 82803; 85014; 85018; 85027; 86592; 86850; 86900; 86901; A9270-GY; J0595; J2590; J2795; J3490; J7120; U0002

== ENCOUNTER 2022-08-05 11:38 | Emergency (ER) | payer MEDICAID ==
[2022-08-05] MEDS ORDERED: Sodium Chloride 0.9% 1,000 ML IV ONE (11:46)
[2022-08-05] MEDS ORDERED: Ketorolac 30 MG/ML SDV IVPUSH ONE (14:08)
[2022-08-05 17:40] VITALS: BP 120/61; PULSE 67
== END 2022-08-05 15:52 | disposition home or self-care (01) ==
LOC: MW.ED 11:38
DX: G40.909 Epilepsy, unspecified, not intractable, without status epilepticus (principal); N30.01 Acute cystitis with hematuria; Z91.018 Allergy to other foods; Z91.040 Latex allergy status; Z88.8 Allergy status to other drugs, medicaments and biological substances; Z79.899 Other long term (current) drug therapy
CPT/HCPCS: 36415; 71045; 80053; 81001; 85025; 87086; 96361; 96365; 96375; 99284; J1885; J1953; J7030

== ENCOUNTER 2023-02-25 10:03 | Emergency (ER) | payer MEDICAID ==
[2023-02-25 11:06] LABS: BASOPHILS PERCENT AUTO 0.2 % (0.0-1.5); EOSINOPHILS ABSOLUTE AUTO 0.1 K/uL (0.0-0.7); EOSINOPHILS PERCENT AUTO 1.5 % (0.0-7.0); HEMOGLOBIN 12.3 g/dL (12.0-16.0); LYMPHOCYTES ABSOLUTE AUTO 2.3 K/uL (0.6-2.4); LYMPHOCYTES PERCENT AUTO 25.4 % (16.0-40.0); MEAN CORPUSCULAR HEMOGLOBIN 24.7 pg (27.0-32.0); MEAN CORPUSCULAR HGB CONC 31.5 g/dL (31.0-37.0); MEAN CORPUSCULAR VOLUME 78.3 fL (80.0-98.0); MONOCYTES ABSOLUTE AUTO 0.4 K/uL (0.0-0.8); MONOCYTES PERCENT AUTO 4.8 % (0.0-15.0); NEUTROPHILS ABSOLUTE AUTO 6.1 K/uL (1.4-5.7); NEUTROPHILS PERCENT AUTO 68.1 % (48.0-80.0); NRBC ABSOLUTE 0 K/uL; PLATELET COUNT,PLT 295 K/uL (150-400); RED BLOOD CELL COUNT 4.98 M/uL (4.30-5.90); WHITE BLOOD CELL COUNT,WBC 8.94 K/uL (4.0-11.0)
[2023-02-25 11:31] LABS: A/G RATIO 0.8 (0.9-1.6); ALANINE AMINOTRANSFERASE,ALT 20 IU/L (14-63); ALBUMIN 3.5 g/dL (3.4-5.0); ALKALINE PHOSPHATASE 149 U/L (46-116); ASPARTATE AMNIOTRANSFERASE,AST 15 IU/L (15-37); BILIRUBIN TOTAL 0.2 mg/dL (0.2-1.0); BLOOD UREA NITROGEN,BUN 10 mg/dL (7.0-18.0); CALCIUM 8.6 mg/dL (8.5-10.1); CARBON DIOXIDE,CO2 22.8 mmol/L (21.0-32.0); CHLORIDE,CL 104 mmol/L (98-107); CREATININE 0.7 mg/dL (0.6-1.0); GLUCOSE RANDOM 105 mg/dL (74-106); LIPASE 59 U/L (73-393); POTASSIUM,K 4.1 mmol/L (3.5-5.1); PROTEIN TOTAL,TP 7.7 g/dL (6.4-8.2); SODIUM,NA 139 mmol/L (136-145)
[2023-02-25 11:32] LABS: ESTIMATED GFR 117 mL/min (>60)
[2023-02-25] MEDS ORDERED: Lactated Ringers 1,000 ML IV ONE (12:24)
[2023-02-25] MEDS ORDERED: Ketorolac 30 MG/ML SDV IVPUSH ONE (12:24)
[2023-02-25] MEDS ORDERED: Ondansetron 4 MG/2 ML SDV IVPUSH ONE (12:24)
[2023-02-25 13:55] LABS: BILIRUBIN,URINE NEGATIVE (NEGATIVE); COLOR,URINE YELLOW; GLUCOSE,URINE NEGATIVE (NEGATIVE); KETONES,URINE NEGATIVE (NEGATIVE); LEUKOCYTE ESTERASE,URINE TRACE (NEGATIVE); NITRITE,URINE NEGATIVE (NEGATIVE); OCCULT BLOOD,URINE LARGE (NEGATIVE); PH,URINE 5.5 (5.0-8.0); PROTEIN,URINE NEGATIVE (NEGATIVE); UROBILINOGEN,URINE 0.2 EU/dL (<2.0)
[2023-02-25 14:04] LABS: APPEARANCE,URINE SLT CLOUDY
[2023-02-25 14:05] LABS: BACTERIA,URINE FEW (NEGATIVE); EPITHELIAL CELLS,URINE FEW (NONE-FEW)
[2023-02-25] MEDS ORDERED: Iopamidol 755 MG/ML 500 ML Multipack Bottle IVPUSH ONE (14:10)
[2023-02-25] MEDS ORDERED: Ondansetron 4 MG Tab.DIS PO ONE (16:07)
[2023-02-25 16:32] VITALS: BP 144/99; PULSE 67
== END 2023-02-25 16:33 | disposition home or self-care (01) ==
LOC: MW.ED 10:03
DX: R10.12 Left upper quadrant pain (principal); Z91.040 Latex allergy status; Z91.018 Allergy to other foods; Z88.8 Allergy status to other drugs, medicaments and biological substances
CPT/HCPCS: 36415; 74177; 80053; 81001; 83690; 84703; 85025; 87086; 96361; 96374; 96375; 99284; A9270; J1885; J2405; J7120; Q9967; 99283

== ENCOUNTER 2023-07-15 05:26 | Emergency (ER) | payer MEDICAID ==
[2023-07-15 07:11] VITALS: BP 128/69; PULSE 61
== END 2023-07-15 07:05 | disposition home or self-care (01) ==
LOC: MW.ED 05:26
DX: G40.909 Epilepsy, unspecified, not intractable, without status epilepticus (principal); Z79.899 Other long term (current) drug therapy; Z91.018 Allergy to other foods; Z91.040 Latex allergy status; Z91.048 Other nonmedicinal substance allergy status
CPT/HCPCS: 99283; 99284

== ENCOUNTER 2023-08-30 05:30 | Emergency (ER) | payer MEDICAID ==
[2023-08-30] MEDS ORDERED: Sodium Chloride 0.9% 10 ML Syringe FLUSH PRN (05:32)
[2023-08-30] MEDS ORDERED: Sodium Chloride 0.9% 1,000 ML IV ONE (05:32)
[2023-08-30] MEDS ORDERED: Sodium Chloride 0.9% 2.5 ML Syringe FLUSH PRN (05:32)
[2023-08-30 05:48] LABS: BASOPHILS ABSOLUTE AUTO 0.04 K/uL (0.00-0.20); BASOPHILS PERCENT AUTO 0.5 % (0.0-1.0); EOSINOPHILS ABSOLUTE AUTO 0.06 K/uL (0.00-0.45); EOSINOPHILS PERCENT AUTO 0.8 % (0.0-6.0); HEMATOCRIT 36.6 % (37.0-47.0); HEMOGLOBIN 11.8 g/dL (12.0-16.0); IMMATURE GRAN ABSOLUTE AUTO 0.01 K/uL (0.00-0.05); IMMATURE GRAN PERCENT AUTO 0.1 % (0.0-0.4); LYMPHOCYTES ABSOLUTE AUTO 1.69 K/uL (1.00-4.80); LYMPHOCYTES PERCENT AUTO 21.6 % (24.0-44.0); MEAN CORPUSCULAR HEMOGLOBIN 24.7 pg (28.0-32.0); MEAN CORPUSCULAR HGB CONC 32.2 g/dL (32.0-36.0); MEAN CORPUSCULAR VOLUME 76.7 fL (83.0-99.0); MEAN PLATELET VOLUME 9.3 fL (9.4-12.3); MONOCYTES ABSOLUTE AUTO 0.35 K/uL (0.00-0.80); MONOCYTES PERCENT AUTO 4.5 % (0.0-8.0); NEUTROPHILS ABSOLUTE AUTO 5.67 K/uL (1.80-7.70); NEUTROPHILS PERCENT AUTO 72.5 % (41.0-71.0); PLATELET COUNT,PLT 279 K/uL (150-400); RED BLOOD CELL COUNT 4.77 M/uL (4.10-5.30); WHITE BLOOD CELL COUNT,WBC 7.82 K/uL (3.9-11.3)
[2023-08-30 06:12] LABS: A/G RATIO 0.9 (0.9-1.6); ALANINE AMINOTRANSFERASE,ALT 19 IU/L (14-63); ALBUMIN 3.6 g/dL (3.4-5.0); ALKALINE PHOSPHATASE 134 U/L (46-116); ASPARTATE AMNIOTRANSFERASE,AST 18 IU/L (15-37); BILIRUBIN TOTAL 0.3 mg/dL (0.2-1.0); BLOOD UREA NITROGEN,BUN 6 mg/dL (7.0-18.0); CALCIUM 8.9 mg/dL (8.5-10.1); CHLORIDE,CL 103 mmol/L (98-107); CREATININE 0.8 mg/dL (0.6-1.0); EST CRCL DRUG DOSING (CG) 71.84 mL/min; ETHANOL BLOOD MEDICAL <3 mg/dL; GLUCOSE RANDOM 128 mg/dL (74-106); POTASSIUM,K 3.6 mmol/L (3.5-5.1); PROTEIN TOTAL,TP 7.7 g/dL (6.4-8.2); SODIUM,NA 140 mmol/L (136-145)
[2023-08-30 06:15] LABS: ESTIMATED GFR 100 mL/min (>60)
[2023-08-30 06:33] VITALS: BP 108/63; PULSE 66
== END 2023-08-30 06:50 | disposition home or self-care (01) ==
LOC: MW.ED 05:30
DX: G40.909 Epilepsy, unspecified, not intractable, without status epilepticus (principal); Z91.018 Allergy to other foods; Z91.010 Allergy to peanuts; Z91.040 Latex allergy status; Z88.8 Allergy status to other drugs, medicaments and biological substances
CPT/HCPCS: 36415; 80053; 80307; 84703; 85025; 96360; 99284; J3490; J7030; 99283

== ENCOUNTER 2023-09-11 06:43 | Emergency (ER) | payer MEDICAID ==
[2023-09-11] MEDS ORDERED: Sodium Chloride 0.9% 1,000 ML IV ONE (06:55)
[2023-09-11] MEDS ORDERED: Acetaminophen 500 MG Tab PO ONE (07:08)
[2023-09-11 07:38] LABS: BASOPHILS ABSOLUTE AUTO 0.05 K/uL (0.00-0.20); BASOPHILS PERCENT AUTO 0.5 % (0.0-1.0); EOSINOPHILS ABSOLUTE AUTO 0.15 K/uL (0.00-0.45); EOSINOPHILS PERCENT AUTO 1.6 % (0.0-6.0); HEMATOCRIT 36.5 % (37.0-47.0); HEMOGLOBIN 11.4 g/dL (12.0-16.0); IMMATURE GRAN ABSOLUTE AUTO 0.03 K/uL (0.00-0.05); IMMATURE GRAN PERCENT AUTO 0.3 % (0.0-0.4); LYMPHOCYTES ABSOLUTE AUTO 2.06 K/uL (1.00-4.80); LYMPHOCYTES PERCENT AUTO 22.6 % (24.0-44.0); MEAN CORPUSCULAR HEMOGLOBIN 23.8 pg (28.0-32.0); MEAN CORPUSCULAR HGB CONC 31.2 g/dL (32.0-36.0); MEAN CORPUSCULAR VOLUME 76.4 fL (83.0-99.0); MEAN PLATELET VOLUME 10.2 fL (9.4-12.3); MONOCYTES ABSOLUTE AUTO 0.41 K/uL (0.00-0.80); MONOCYTES PERCENT AUTO 4.5 % (0.0-8.0); NEUTROPHILS ABSOLUTE AUTO 6.41 K/uL (1.80-7.70); NEUTROPHILS PERCENT AUTO 70.5 % (41.0-71.0); PLATELET COUNT,PLT 322 K/uL (150-400); RED BLOOD CELL COUNT 4.78 M/uL (4.10-5.30); WHITE BLOOD CELL COUNT,WBC 9.11 K/uL (3.9-11.3)
[2023-09-11 08:00] LABS: A/G RATIO 0.9 (0.9-1.6); ALANINE AMINOTRANSFERASE,ALT 18 IU/L (14-63); ALBUMIN 3.4 g/dL (3.4-5.0); ALKALINE PHOSPHATASE 125 U/L (46-116); ASPARTATE AMNIOTRANSFERASE,AST 11 IU/L (15-37); BILIRUBIN TOTAL 0.1 mg/dL (0.2-1.0); BLOOD UREA NITROGEN,BUN 10 mg/dL (7.0-18.0); CALCIUM 8.7 mg/dL (8.5-10.1); CARBON DIOXIDE,CO2 26.9 mmol/L (21.0-32.0); CHLORIDE,CL 102 mmol/L (98-107); CREATININE 0.6 mg/dL (0.6-1.0); ESTIMATED GFR 121 mL/min (>60); GLUCOSE RANDOM 112 mg/dL (74-106); MAGNESIUM 1.8 mg/dL (1.8-2.4); POTASSIUM,K 4.5 mmol/L (3.5-5.1); PROTEIN TOTAL,TP 7.4 g/dL (6.4-8.2); SODIUM,NA 135 mmol/L (136-145)
[2023-09-11 08:04] LABS: LACTIC ACID 1.7 mmol/L (0.4-2.0)
[2023-09-11 08:12] LABS: PROLACTIN 10.1 ng/mL
[2023-09-11 08:50] VITALS: BP 128/76; PULSE 59
== END 2023-09-11 08:49 | disposition home or self-care (01) ==
LOC: MW.ED 06:43
DX: G40.909 Epilepsy, unspecified, not intractable, without status epilepticus (principal); Z91.040 Latex allergy status; Z91.018 Allergy to other foods; Z91.048 Other nonmedicinal substance allergy status
CPT/HCPCS: 36415; 80053; 80175; 83605; 83735; 84146; 84703; 85025; 93005; 96374; 99284; A9270; J1953; J7030; J7060; 93010; 99283

== ENCOUNTER 2023-09-23 11:48 | Emergency (ER) | payer MEDICAID ==
[2023-09-23] MEDS ORDERED: LORazepam 2 MG/ML SDV IVPUSH ONE (12:00)
[2023-09-23] MEDS ORDERED: LORazepam 2 MG/ML SDV ONE (12:00)
[2023-09-23] MEDS ORDERED: Sodium Chloride 0.9% 1,000 ML IV ONE (12:01)
[2023-09-23 17:35] VITALS: BP 145/81; PULSE 88
== END 2023-09-23 16:30 | disposition home or self-care (01) ==
LOC: MW.ED 11:48
DX: R56.9 Unspecified convulsions (principal); Z91.040 Latex allergy status; Z91.018 Allergy to other foods; Z88.8 Allergy status to other drugs, medicaments and biological substances; Z79.899 Other long term (current) drug therapy
CPT/HCPCS: 96365; 96375; 99284; J1953; J2060; J7030; J7060; 99282

== ENCOUNTER 2023-10-05 07:40 | Emergency (ER) | payer MEDICAID ==
[2023-10-05] MEDS ORDERED: Sodium Chloride 0.9% 1,000 ML IV ONE (07:41)
[2023-10-05] MEDS ORDERED: LORazepam 2 MG/ML SDV ONE (08:02)
[2023-10-05] MEDS ORDERED: LORazepam 2 MG/ML SDV IVPUSH ONE (08:09)
[2023-10-05 10:01] VITALS: BP 159/96; PULSE 79
== END 2023-10-05 09:59 | disposition home or self-care (01) ==
LOC: MW.ED 07:40
DX: G40.909 Epilepsy, unspecified, not intractable, without status epilepticus (principal); Z91.148 Patient's other noncompliance with medication regimen for other reason; Z91.018 Allergy to other foods; Z91.040 Latex allergy status; Z88.9 Allergy status to unspecified drugs, medicaments and biological substances
CPT/HCPCS: 96361; 96365; 96375; 99284; J1953; J2060; J7030; J7060

== ENCOUNTER 2023-10-10 18:11 | Emergency (ER) | payer MEDICAID ==
[2023-10-10 18:18] VITALS: PULSE 83
[2023-10-10] MEDS ORDERED: Diphtheria,Pertussis(Acell),Tetanus Vaccine 0.5 ML Syringe IM ONE (18:26)
[2023-10-10] MEDS ORDERED: Lidocaine 1% 5 ML VIAL INJECT STA (18:26)
[2023-10-10 19:20] VITALS: BP 161/125
== END 2023-10-10 19:19 | disposition home or self-care (01) ==
LOC: MW.ED 18:11
DX: S61.411A Laceration without foreign body of right hand, initial encounter (principal); Z91.040 Latex allergy status; Z91.018 Allergy to other foods; Z91.048 Other nonmedicinal substance allergy status; W26.8XXA Contact with other sharp object(s), not elsewhere classified, initial encounter; Y93.G9 Activity, other involving cooking and grilling; Z23 Encounter for immunization
CPT/HCPCS: 12001; 90471; 90715; 99282-25; J3490

== ENCOUNTER 2023-12-13 08:43 | Emergency (ER) | payer MEDICAID ==
[2023-12-13] MEDS: levETIRAcetam 500 MG Tab PO STA (08:53)
[2023-12-13 09:58] VITALS: BP 129/79; PULSE 83
== END 2023-12-13 09:58 | disposition home or self-care (01) ==
LOC: MW.ED 08:43
DX: G40.909 Epilepsy, unspecified, not intractable, without status epilepticus (principal); Z91.018 Allergy to other foods; Z91.040 Latex allergy status; Z88.8 Allergy status to other drugs, medicaments and biological substances; Z79.899 Other long term (current) drug therapy
CPT/HCPCS: 99284; A9270; 99283

== ENCOUNTER 2024-02-13 13:41 | Emergency (ER) | payer MEDICAID ==
[2024-02-13] MEDS: Sodium Chloride 0.9% 2.5 ML Syringe FLUSH PRN (13:55)
[2024-02-13] MEDS: Sodium Chloride 0.9% 10 ML Syringe FLUSH PRN (13:56)
[2024-02-13 14:43] LABS: BASOPHILS ABSOLUTE AUTO 0.04 K/uL (0.00-0.20); BASOPHILS PERCENT AUTO 0.6 % (0.0-1.0); EOSINOPHILS ABSOLUTE AUTO 0.05 K/uL (0.00-0.45); EOSINOPHILS PERCENT AUTO 0.7 % (0.0-6.0); HEMATOCRIT 36.3 % (37.0-47.0); HEMOGLOBIN 11.3 g/dL (12.0-16.0); IMMATURE GRAN ABSOLUTE AUTO 0.02 K/uL (0.00-0.05); IMMATURE GRAN PERCENT AUTO 0.3 % (0.0-0.4); LYMPHOCYTES ABSOLUTE AUTO 2.39 K/uL (1.00-4.80); MEAN CORPUSCULAR HGB CONC 31.1 g/dL (32.0-36.0); MEAN CORPUSCULAR VOLUME 77.1 fL (83.0-99.0); MEAN PLATELET VOLUME 9.4 fL (9.4-12.3); MONOCYTES ABSOLUTE AUTO 0.36 K/uL (0.00-0.80); NEUTROPHILS ABSOLUTE AUTO 4.39 K/uL (1.80-7.70); NEUTROPHILS PERCENT AUTO 60.4 % (41.0-71.0); PLATELET COUNT,PLT 254 K/uL (150-400); RED BLOOD CELL COUNT 4.71 M/uL (4.10-5.30); WHITE BLOOD CELL COUNT,WBC 7.25 K/uL (3.9-11.3)
[2024-02-13 15:05] LABS: A/G RATIO 0.7 (0.9-1.6); ALANINE AMINOTRANSFERASE,ALT 13 IU/L (14-63); ALKALINE PHOSPHATASE 109 U/L (46-116); ASPARTATE AMNIOTRANSFERASE,AST 12 IU/L (15-37); BILIRUBIN TOTAL 0.2 mg/dL (0.2-1.0); BLOOD UREA NITROGEN,BUN 7 mg/dL (7.0-18.0); CALCIUM 8.5 mg/dL (8.5-10.1); CHLORIDE,CL 101 mmol/L (98-107); CREATININE 0.8 mg/dL (0.6-1.0); ESTIMATED GFR 99 mL/min (>60); ETHANOL BLOOD MEDICAL < 3.0 mg/dL; GLUCOSE RANDOM 86 mg/dL (74-106); POTASSIUM,K 4.3 mmol/L (3.5-5.1); PROTEIN TOTAL,TP 7.4 g/dL (6.4-8.2); SODIUM,NA 137 mmol/L (136-145)
[2024-02-13 18:41] VITALS: BP 138/81; PULSE 78
== END 2024-02-13 18:57 | disposition home or self-care (01) ==
LOC: MW.ED 13:41
DX: G40.909 Epilepsy, unspecified, not intractable, without status epilepticus (principal); Z91.018 Allergy to other foods; Z91.040 Latex allergy status; Z88.8 Allergy status to other drugs, medicaments and biological substances; Z79.899 Other long term (current) drug therapy; Z75.8 Other problems related to medical facilities and other health care
CPT/HCPCS: 36415; 70450; 72125; 80053; 80307; 85025; 99285; J3490; 93010; 99282

== ENCOUNTER 2024-03-10 15:30 | Emergency (ER) | payer MEDICAID ==
[2024-03-10] MEDS: LORazepam 2 MG/ML SDV IVPUSH ONE (15:48)
[2024-03-10] MEDS: levETIRAcetam 500 MG Tab PO STA ×3 (15:48→18:32)
[2024-03-10] MEDS: LORazepam 2 MG/ML SDV ONE (15:49)
[2024-03-10 15:51] LABS: BASOPHILS ABSOLUTE AUTO 0.06 K/uL (0.00-0.20); BASOPHILS PERCENT AUTO 0.8 % (0.0-1.0); EOSINOPHILS ABSOLUTE AUTO 0.12 K/uL (0.00-0.45); EOSINOPHILS PERCENT AUTO 1.5 % (0.0-6.0); HEMATOCRIT 36.3 % (37.0-47.0); HEMOGLOBIN 11.1 g/dL (12.0-16.0); IMMATURE GRAN ABSOLUTE AUTO 0.01 K/uL (0.00-0.05); IMMATURE GRAN PERCENT AUTO 0.1 % (0.0-0.4); LYMPHOCYTES ABSOLUTE AUTO 2.83 K/uL (1.00-4.80); LYMPHOCYTES PERCENT AUTO 35.6 % (24.0-44.0); MEAN CORPUSCULAR HEMOGLOBIN 23.5 pg (28.0-32.0); MEAN CORPUSCULAR HGB CONC 30.6 g/dL (32.0-36.0); MEAN CORPUSCULAR VOLUME 76.7 fL (83.0-99.0); MEAN PLATELET VOLUME 9.4 fL (9.4-12.3); MONOCYTES ABSOLUTE AUTO 0.44 K/uL (0.00-0.80); MONOCYTES PERCENT AUTO 5.5 % (0.0-8.0); NEUTROPHILS PERCENT AUTO 56.5 % (41.0-71.0); PLATELET COUNT,PLT 279 K/uL (150-400); RED BLOOD CELL COUNT 4.73 M/uL (4.10-5.30); WHITE BLOOD CELL COUNT,WBC 7.96 K/uL (3.9-11.3)
[2024-03-10 16:11] LABS: A/G RATIO 0.7 (0.9-1.6); ALBUMIN 3.2 g/dL (3.4-5.0); BILIRUBIN TOTAL 0.2 mg/dL (0.2-1.0); CALCIUM 8.5 mg/dL (8.5-10.1); CARBON DIOXIDE,CO2 23.7 mmol/L (21.0-32.0); EST CRCL DRUG DOSING (CG) 56.94 mL/min; POTASSIUM,K 3.8 mmol/L (3.5-5.1); PROTEIN TOTAL,TP 7.6 g/dL (6.4-8.2)
[2024-03-10] MEDS: Divalproex Sodium Delayed-Release 500 MG Tab.CR PO ONE (18:30)
[2024-03-10] MEDS: lamoTRIgine 100 MG Tab PO ONE (18:31)
[2024-03-10 19:01] VITALS: BP 126/87; PULSE 87
== END 2024-03-10 19:01 | disposition home or self-care (01) ==
LOC: MW.ED 15:30
DX: R56.9 Unspecified convulsions (principal); Z91.018 Allergy to other foods; Z91.040 Latex allergy status; Z88.8 Allergy status to other drugs, medicaments and biological substances; Z79.899 Other long term (current) drug therapy
CPT/HCPCS: 36415; 70450; 80053; 82947; 85025; 96374; 96375; 99285; A9270; J1953; J2060; J7060; 99284

== ENCOUNTER 2024-04-21 07:44 | Emergency (ER) | payer SELFPAY ==
[2024-04-21 08:10] LABS: BASOPHILS ABSOLUTE AUTO 0.04 K/uL (0.00-0.20); BASOPHILS PERCENT AUTO 0.6 % (0.0-1.0); EOSINOPHILS ABSOLUTE AUTO 0.09 K/uL (0.00-0.45); EOSINOPHILS PERCENT AUTO 1.3 % (0.0-6.0); HEMATOCRIT 35.6 % (37.0-47.0); HEMOGLOBIN 10.9 g/dL (12.0-16.0); IMMATURE GRAN ABSOLUTE AUTO 0.01 K/uL (0.00-0.05); IMMATURE GRAN PERCENT AUTO 0.1 % (0.0-0.4); LYMPHOCYTES ABSOLUTE AUTO 1.92 K/uL (1.00-4.80); LYMPHOCYTES PERCENT AUTO 28.5 % (24.0-44.0); MEAN CORPUSCULAR HEMOGLOBIN 23.1 pg (28.0-32.0); MEAN CORPUSCULAR HGB CONC 30.6 g/dL (32.0-36.0); MEAN CORPUSCULAR VOLUME 75.4 fL (83.0-99.0); MEAN PLATELET VOLUME 9.4 fL (9.4-12.3); MONOCYTES PERCENT AUTO 5.9 % (0.0-8.0); NEUTROPHILS ABSOLUTE AUTO 4.27 K/uL (1.80-7.70); NEUTROPHILS PERCENT AUTO 63.6 % (41.0-71.0); PLATELET COUNT,PLT 269 K/uL (150-400); RED BLOOD CELL COUNT 4.72 M/uL (4.10-5.30); WHITE BLOOD CELL COUNT,WBC 6.73 K/uL (3.9-11.3)
[2024-04-21] MEDS: Sodium Chloride 0.9% 1,000 ML IV ONE (08:11)
[2024-04-21] MEDS: Sodium Chloride 0.9% 2.5 ML Syringe FLUSH PRN (08:12)
[2024-04-21] MEDS: Ondansetron 4 MG/2 ML SDV IVPUSH ONE (08:12)
[2024-04-21] MEDS: Sodium Chloride 0.9% 10 ML Syringe FLUSH PRN (08:12)
[2024-04-21 08:32] LABS: A/G RATIO 0.9 (0.9-1.6); ALBUMIN 3.4 g/dL (3.4-5.0); BILIRUBIN TOTAL 0.2 mg/dL (0.2-1.0); CALCIUM 8.4 mg/dL (8.5-10.1); CARBON DIOXIDE,CO2 23.4 mmol/L (21.0-32.0); CREATININE 0.8 mg/dL (0.6-1.0); EST CRCL DRUG DOSING (CG) 71.17 mL/min; POTASSIUM,K 3.8 mmol/L (3.5-5.1); PROTEIN TOTAL,TP 7.3 g/dL (6.4-8.2)
[2024-04-21 16:28] VITALS: BP 129/82; PULSE 70
== END 2024-04-21 12:15 | disposition home or self-care (01) ==
LOC: MW.ED 07:44
DX: G40.909 Epilepsy, unspecified, not intractable, without status epilepticus (principal); S00.83XA Contusion of other part of head, initial encounter; Z91.040 Latex allergy status; Z91.018 Allergy to other foods; Z88.8 Allergy status to other drugs, medicaments and biological substances; X50.9XXA Other and unspecified overexertion or strenuous movements or postures, initial encounter
CPT/HCPCS: 36415; 70450; 70486; 80053; 82550; 84703; 85025; 93005; 96374; 96375; 99285; J1953; J2405; J3490; J7030; J7060

== ENCOUNTER 2024-09-28 18:31 | Emergency (ER) | payer MEDICAID ==
[2024-09-29 01:24] VITALS: BP 127/99; PULSE 81
== END 2024-09-29 01:24 | disposition home or self-care (01) ==
LOC: MW.ED 18:31
DX: S89.91XA Unspecified injury of right lower leg, initial encounter (principal); Z75.8 Other problems related to medical facilities and other health care; Z91.040 Latex allergy status; Z91.018 Allergy to other foods; Z88.8 Allergy status to other drugs, medicaments and biological substances; Z90.49 Acquired absence of other specified parts of digestive tract; W00.0XXA Fall on same level due to ice and snow, initial encounter
CPT/HCPCS: 73562-26-RT; 73562-RT; 99283

== ENCOUNTER 2025-01-26 15:04 | Emergency (ER) | payer SELFPAY ==
[2025-01-26] MEDS ORDERED: Sodium Chloride 0.9% 10 ML Syringe FLUSH PRN (16:26)
[2025-01-26 16:37] LABS: BASOPHILS ABSOLUTE AUTO 0.04 K/uL (0.00-0.20); BASOPHILS PERCENT AUTO 0.5 % (0.0-1.0); EOSINOPHILS ABSOLUTE AUTO 0.08 K/uL (0.00-0.45); HEMATOCRIT 37.8 % (37.0-47.0); HEMOGLOBIN 12.1 g/dL (12.0-16.0); IMMATURE GRAN ABSOLUTE AUTO 0.03 K/uL (0.00-0.05); IMMATURE GRAN PERCENT AUTO 0.4 % (0.0-0.4); LYMPHOCYTES ABSOLUTE AUTO 2.89 K/uL (1.00-4.80); LYMPHOCYTES PERCENT AUTO 36.3 % (24.0-44.0); MEAN CORPUSCULAR HEMOGLOBIN 26.5 pg (28.0-32.0); MEAN CORPUSCULAR VOLUME 82.9 fL (83.0-99.0); MEAN PLATELET VOLUME 8.9 fL (9.4-12.3); MONOCYTES ABSOLUTE AUTO 0.55 K/uL (0.00-0.80); MONOCYTES PERCENT AUTO 6.9 % (0.0-8.0); NEUTROPHILS ABSOLUTE AUTO 4.38 K/uL (1.80-7.70); NEUTROPHILS PERCENT AUTO 54.9 % (41.0-71.0); PLATELET COUNT,PLT 228 K/uL (150-400); RED BLOOD CELL COUNT 4.56 M/uL (4.10-5.30); WHITE BLOOD CELL COUNT,WBC 7.97 K/uL (3.9-11.3)
[2025-01-26] MEDS: Sodium Chloride 0.9% 1,000 ML IV ONE (16:39)
[2025-01-26 18:18] LABS: A/G RATIO 0.8 (0.9-1.6); ALBUMIN 3.4 g/dL (3.4-5.0); BILIRUBIN TOTAL 0.3 mg/dL (0.2-1.0); CALCIUM 9.1 mg/dL (8.5-10.1); CARBON DIOXIDE,CO2 24.8 mmol/L (21.0-32.0); CREATININE 0.8 mg/dL (0.6-1.0); EST CRCL DRUG DOSING (CG) 70.5 mL/min; POTASSIUM,K 3.7 mmol/L (3.5-5.1); PROTEIN TOTAL,TP 7.5 g/dL (6.4-8.2)
[2025-01-26 18:37] VITALS: BP 131/85; PULSE 77
[2025-01-26] MEDS: Ketorolac 30 MG/ML SDV IVPUSH ONE (19:16)
== END 2025-01-26 19:22 | disposition home or self-care (01) ==
LOC: MW.ED 15:04
DX: S92.415A Nondisplaced fracture of proximal phalanx of left great toe, initial encounter for closed fracture (principal); R42 Dizziness and giddiness; Z86.73 Personal history of transient ischemic attack (TIA), and cerebral infarction without residual deficits; Z90.49 Acquired absence of other specified parts of digestive tract; Z88.8 Allergy status to other drugs, medicaments and biological substances; Z91.018 Allergy to other foods; Z91.013 Allergy to seafood; Z91.040 Latex allergy status; Z79.899 Other long term (current) drug therapy; W01.198A Fall on same level from slipping, tripping and stumbling with subsequent striking against other object, initial encounter
CPT/HCPCS: 36415; 70450; 70450-26; 71045; 71045-26; 73110-26-RT; 73110-RT; 73630-26-LT; 73630-LT; 80053; 84484; 85025; 93005; 96361; 96374; 99284-25; J1885; J7030

== ENCOUNTER 2025-04-26 21:50 | Emergency (ER) | payer MEDICAID ==
[2025-04-27] MEDS: Ketorolac 30 MG/ML SDV IM ONE (01:09)
[2025-04-27] MEDS: Amoxicillin/Clavulanate K 875-125 MG Tab PO ONE (01:09)
[2025-04-27] MEDS ORDERED: Midazolam 5 MG/ML SDV IM ONE (02:16)
[2025-04-27] MEDS: LORazepam 2 MG/ML SDV IVPUSH ONE (02:23)
[2025-04-27 02:50] LABS: BASOPHILS ABSOLUTE AUTO 0.10 K/uL (0.00-0.20); BASOPHILS PERCENT AUTO 1.0 % (0.0-1.0); EOSINOPHILS ABSOLUTE AUTO 0.07 K/uL (0.00-0.45); EOSINOPHILS PERCENT AUTO 0.7 % (0.0-6.0); IMMATURE GRAN ABSOLUTE AUTO 0.04 K/uL (0.00-0.05); IMMATURE GRAN PERCENT AUTO 0.4 % (0.0-0.4); LYMPHOCYTES ABSOLUTE AUTO 2.99 K/uL (1.00-4.80); LYMPHOCYTES PERCENT AUTO 29.8 % (24.0-44.0); MEAN PLATELET VOLUME 9.1 fL (9.4-12.3); MONOCYTES ABSOLUTE AUTO 1.02 K/uL (0.00-0.80); MONOCYTES PERCENT AUTO 10.2 % (0.0-8.0); NEUTROPHILS ABSOLUTE AUTO 5.82 K/uL (1.80-7.70); NEUTROPHILS PERCENT AUTO 57.9 % (41.0-71.0); NRBC ABSOLUTE 0.06 K/uL (0.00-0.02); NRBC PERCENT 0.6 /100WBC (0.0-0.2); PLATELET COUNT,PLT 212 K/uL (150-400); RED BLOOD CELL COUNT 4.10 M/uL (4.10-5.30); WHITE BLOOD CELL COUNT,WBC 10.04 K/uL (3.9-11.3)
[2025-04-27] MEDS: levETIRAcetam 500 MG/5 ML SDV IVPUSH ONE (03:10)
[2025-04-27 03:15] LABS: A/G RATIO 0.8 (0.9-1.6); ALANINE AMINOTRANSFERASE,ALT 26 IU/L (14-63); ASPARTATE AMNIOTRANSFERASE,AST 18 IU/L (15-37); BILIRUBIN TOTAL 0.3 mg/dL (0.2-1.0); BLOOD UREA NITROGEN,BUN 15 mg/dL (7.0-18.0); CARBON DIOXIDE,CO2 20.2 mmol/L (21.0-32.0); CHLORIDE,CL 101 mmol/L (98-107); CREATININE 1.0 mg/dL (0.6-1.0); ESTIMATED GFR 75 mL/min (>60); GLUCOSE RANDOM 134 mg/dL (74-106); POTASSIUM,K 3.5 mmol/L (3.5-5.1); PROTEIN TOTAL,TP 6.8 g/dL (6.4-8.2); SODIUM,NA 139 mmol/L (136-145)
[2025-04-27 04:59] LABS: APPEARANCE,URINE SLT CLOUDY; GLUCOSE,URINE NEGATIVE (NEGATIVE); OCCULT BLOOD,URINE MODERATE (NEGATIVE)
[2025-04-27 05:08] LABS: AMPHETAMINES SCREEN, URINE NEGATIVE (CUTOFF=500); BUPRENORPHINE SCREEN,URINE NEGATIVE (CUTOFF=10); METHADONE SCREEN, URINE NEGATIVE (CUTOFF=200); METHAMPHETAMINES SCREEN, URINE NEGATIVE (CUTOFF=500); OXYCODONE SCREEN,URINE NEGATIVE (CUT0FF=100); PCP SCREEN,URINE NEGATIVE (CUTOFF=25); THC SCREEN,URINE 20 NG/ML NEGATIVE (CUTOFF=50)
[2025-04-27 05:08] LABS: EPITHELIAL CELLS,URINE FEW (NONE-FEW)
[2025-04-27 07:23] VITALS: BP 137/95; PULSE 76
== END 2025-04-27 08:16 | disposition home or self-care (01) ==
LOC: MW.ED 21:50
DX: L03.311 Cellulitis of abdominal wall (principal); T21.22XA Burn of second degree of abdominal wall, initial encounter; G40.909 Epilepsy, unspecified, not intractable, without status epilepticus; Z91.018 Allergy to other foods; Z91.040 Latex allergy status; Z88.8 Allergy status to other drugs, medicaments and biological substances; Z91.013 Allergy to seafood; Z79.899 Other long term (current) drug therapy; X12.XXXA Contact with other hot fluids, initial encounter; Y93.89 Activity, other specified
CPT/HCPCS: 36415; 70450; 80053; 80305; 81001; 82947; 83036; 83605; 83735; 84703; 85025; 96372; 96374; 96375; 99284; A9270; J1885; J1953; J2060; J7030